=== PATIENT | male | born 1970 | race Caucasian/White ===

== ENCOUNTER → 2016-12-26 | Outpatient (CLI) | payer MEDICARE, MEDICAID ==
[~2016-12-26] MED LIST: ACET-784 PR; AUD NEB; BENZ56.73 TP; CLIN1KIT TP; IPRNEB IH; SUCR1ORA3 PO
== END | disposition home or self-care (01) ==
LOC: RADPV 09:43
PROVIDERS: ATTEND Family Medicine
DX: Z13.820 Encounter for screening for osteoporosis (principal); M81.0 Age-related osteoporosis without current pathological fracture
CPT/HCPCS: 77080

== ENCOUNTER 2017-06-12 10:16 | Inpatient (IN) | payer MEDICARE, MEDICAID ==
[~2017-06-12] VITALS: Ht 165.1 cm; Wt 46.6 kg
[2017-06-12] MEDS ORDERED: FAMO20 PO (10:25)
[2017-06-12] MEDS ORDERED: GLYC1TAB11 PO (10:25)
[2017-06-12] MEDS ORDERED: ALEN70TA48 PO (10:25)
[2017-06-12] MEDS ORDERED: OS500 PO (10:25)
[2017-06-12] MEDS ORDERED: 0.9% SODIUM CHLORIDE 10 ML SYRINGE IVP PRN (10:45)
[2017-06-12 11:43] LABS: EOSINOPHILS % (AUTO) 0.2 % (1.0-6.0); HEMATOCRIT 44.2 % (41-53); HEMOGLOBIN 15.3 g/dL (13.5-17.5); LYMPHOCYTES # (AUTO) 0.7 K/uL (1.0-4.8); LYMPHOCYTES % (AUTO) 5.6 % (22.0-44.0); MEAN CORPUSCULAR HEMOGLOBIN 30.8 pg (26.0-34.0); MEAN CORPUSCULAR HGB CONC 34.5 G/dL (31.0-37.0); MEAN CORPUSCULAR VOLUME 89 fL (80-100); MONOCYTES # (AUTO) 0.7 K/uL (0.1-1.0); MONOCYTES % (AUTO) 5.7 % (2.0-9.0); NEUTROPHILS # (AUTO) 11.2 K/uL (1.8-7.7); PLATELET COUNT (AUTO) 292 K/uL (150-450); RED BLOOD CELL COUNT(AUTO) 4.96 MIL/uL (4.50-5.90); RED CELL DISTRIBUTION WIDTH 12.6 % (11.5-14.5); WHITE BLOOD COUNT (AUTO) 12.7 K/uL (4.5-11.0)
[2017-06-12 11:45] LABS: NEUTROPHILS % (AUTO) 88.5 % (40.0-70.0)
[2017-06-12 11:52] LABS: PROTHROMBIN TIME 10.6 SEC (9.4-11.6)
[2017-06-12 11:58] LABS: ANION GAP 10 mmol/L (8-16); CALCIUM, TOTAL 9.2 mg/dL (8.8-10.5); CARBON DIOXIDE 27 mmol/L (22-29); CHLORIDE 102 mmol/L (98-107); CREATININE 0.63 mg/dL (0.60-1.30); GLOMERULAR FILTR. RATE CALC > 60 mL/min (>60); POTASSIUM 3.9 mmol/L (3.5-5.1); SODIUM SERUM 139 mmol/L (136-145); UREA NITROGEN, BLOOD 25 mg/dL (7-18)
[2017-06-12 12:04] LABS: ALANINE AMINOTRANSFERASE 34 U/L (12-78); ALBUMIN 3.2 g/dL (3.4-5.0); ASPARTATE AMINOTRANSFERASE 25 U/L (15-37); BILIRUBIN,TOTAL 0.3 mg/dL (0.1-1.0); TOTAL PROTEIN, SERUM 7.2 g/dL (6.4-8.2)
[2017-06-12 12:15] LABS: APPEARANCE,URINE CLEAR (CLEAR); GLUCOSE, URINE (UA) NEGATIVE (NEGATIVE); KETONES,URINE TRACE mg/dL (NEGATIVE); LEUKOCYTE ESTERASE ,URINE NEGATIVE (NEGATIVE); OCCULT BLOOD,URINE NEGATIVE (NEGATIVE); PROTEIN,URINE POS 1+ (NEGATIVE)
[2017-06-12 12:22] LABS: ADD UA MICROSCOPIC NO
[2017-06-12 12:45] LABS: LACTIC ACID 0.9 mmol/L (0.4-2.0)
[2017-06-12] MEDS ORDERED: ACETAMINOPHEN 1000 MG/ISO-OSM 100 ML IV ONE (13:00)
[2017-06-12] MEDS ORDERED: SODIUM CHLORIDE 0.9% 1,000 ML IV ONE (13:00)
[2017-06-12] MEDS ORDERED: AZITHROMYCIN 500 MG/NS 250 ML IV ONE (13:00)
[2017-06-12] MEDS ORDERED: CefTRIAXone 1 GM/DEXTROSE 50 ML IV ONE (13:00)
[2017-06-12 15:30] VITALS: BP 129/70
[2017-06-12] MEDS ORDERED: INSULIN REGULAR, HUMAN 100 UNITS/ML SQ PRN (19:30)
[2017-06-12] MEDS ORDERED: DEXTROSE 50%-WATER 25 GM/50 ML SYRINGE IVP PRN (19:30)
[2017-06-12 20:57] VITALS: BP 116/56
[2017-06-13 00:10] VITALS: BP 124/73
[2017-06-13 06:10] VITALS: BP 122/74
[2017-06-13 08:16] VITALS: BP 130/64
[2017-06-13 11:56] VITALS: BP_SYST 125
[2017-06-13] MEDS: AZITHROMYCIN 250 MG in SODIUM CHLORIDE 0.9% 150 ML IV SCH (13:55)
[2017-06-13] MEDS ORDERED: SODIUM CHLORIDE 0.9% 250 ML IV ONE (13:56)
[2017-06-13] MEDS: CefTRIAXone 1 GM/DEXTROSE 50 ML IV SCH (13:58)
[2017-06-13] MEDS: ACETYLCYSTEINE 10% 100 MG/ML 4 ML NEB SOLUTION NEB SCH ×2 (15:59→19:29)
[2017-06-13] MEDS: ALBUTEROL SULFATE 2.5 MG/0.5 ML NEB SOLUTION NEB SCH ×3 (15:59→23:02)
[2017-06-13] MEDS: IPRATROPIUM BROMIDE 0.5 MG/2.5 ML NEB SOLUTION NEB SCH ×3 (15:59→23:02)
[2017-06-13 16:49] VITALS: BP 131/88
[2017-06-13 19:08] LABS: GLUCOSE,POINT OF CARE 128 MG/DL (70-110)
[2017-06-13 19:08] LABS: GLUCOSE,POINT OF CARE 128 MG/DL (70-110)
[2017-06-13 19:08] LABS: GLUCOSE,POINT OF CARE 102 MG/DL (70-110)
[2017-06-13 20:00] VITALS: BP 121/75
[2017-06-14] VITALS (7 sets, daily range): BP systolic 109–138; BP diastolic 66–86
[2017-06-14] MEDS: IPRATROPIUM BROMIDE 0.5 MG/2.5 ML NEB SOLUTION NEB SCH ×6 (03:12→23:04)
[2017-06-14] MEDS: ALBUTEROL SULFATE 2.5 MG/0.5 ML NEB SOLUTION NEB SCH ×6 (03:12→23:04)
[2017-06-14] MEDS ORDERED: ONDANSETRON HCL 4 MG/2 ML VIAL IVP PRN (09:00)
[2017-06-14] MEDS ORDERED: IPRATROPIUM BROMIDE 0.5 MG/2.5 ML NEB SOLUTION NEB PRN (09:00)
[2017-06-14] MEDS ORDERED: ACETAMINOPHEN 325 MG TABLET PO PRN (09:00)
[2017-06-14] MEDS ORDERED: ZOLPIDEM TARTRATE 5 MG TABLET PO PRN (09:00)
[2017-06-14] MEDS ORDERED: ALBUTEROL SULFATE 2.5 MG/0.5 ML NEB SOLUTION NEB PRN (09:00)
[2017-06-14] MEDS: DOCUSATE SODIUM 100 MG CAPSULE PO SCH ×2 (09:50→20:40)
[2017-06-14 10:58] LABS: BASOPHILS % (AUTO) 0.3 % (0.0-2.0); EOSINOPHILS % (AUTO) 2.4 % (1.0-6.0); HEMATOCRIT 44.3 % (41-53); HEMOGLOBIN 15.3 g/dL (13.5-17.5); LYMPHOCYTES # (AUTO) 1.6 K/uL (1.0-4.8); LYMPHOCYTES % (AUTO) 18.4 % (22.0-44.0); MEAN CORPUSCULAR HEMOGLOBIN 30.8 pg (26.0-34.0); MEAN CORPUSCULAR HGB CONC 34.5 G/dL (31.0-37.0); MEAN CORPUSCULAR VOLUME 89 fL (80-100); MONOCYTES # (AUTO) 0.5 K/uL (0.1-1.0); MONOCYTES % (AUTO) 5.6 % (2.0-9.0); NEUTROPHILS # (AUTO) 6.5 K/uL (1.8-7.7); NEUTROPHILS % (AUTO) 73.3 % (40.0-70.0); PLATELET COUNT (AUTO) 320 K/uL (150-450); RED BLOOD CELL COUNT(AUTO) 4.98 MIL/uL (4.50-5.90); RED CELL DISTRIBUTION WIDTH 13.1 % (11.5-14.5); WHITE BLOOD COUNT (AUTO) 8.9 K/uL (4.5-11.0)
[2017-06-14 11:08] LABS: ANION GAP 9 mmol/L (8-16); CALCIUM, TOTAL 10.2 mg/dL (8.8-10.5); CARBON DIOXIDE 29 mmol/L (22-29); CHLORIDE 103 mmol/L (98-107); CREATININE 0.52 mg/dL (0.60-1.30); GLOMERULAR FILTR. RATE CALC > 60 mL/min (>60); POTASSIUM 4.9 mmol/L (3.5-5.1); SODIUM SERUM 141 mmol/L (136-145); UREA NITROGEN, BLOOD 21 mg/dL (7-18)
[2017-06-14] MEDS: ACETYLCYSTEINE 10% 100 MG/ML 4 ML NEB SOLUTION NEB SCH ×3 (11:09→20:14)
[2017-06-14 11:13] LABS: ALANINE AMINOTRANSFERASE 26 U/L (12-78); ALBUMIN 3.2 g/dL (3.4-5.0); ASPARTATE AMINOTRANSFERASE 29 U/L (15-37); BILIRUBIN,TOTAL 0.3 mg/dL (0.1-1.0); TOTAL PROTEIN, SERUM 8.1 g/dL (6.4-8.2)
[2017-06-14] MEDS: CefTRIAXone 1 GM/DEXTROSE 50 ML IV SCH (11:39)
[2017-06-14] MEDS: AZITHROMYCIN 250 MG in SODIUM CHLORIDE 0.9% 150 ML IV SCH (13:40)
[2017-06-14] MEDS: HEPARIN SODIUM,PORCINE 5,000 UNITS/ML VIAL SQ SCH (16:12)
[2017-06-14 20:02] LABS: GLUCOSE,POINT OF CARE 118 MG/DL (70-110)
[2017-06-14 20:07] LABS: GLUCOSE,POINT OF CARE 146 MG/DL (70-110)
[2017-06-14 20:08] LABS: GLUCOSE,POINT OF CARE 118 MG/DL (70-110)
[2017-06-15] MEDS: HEPARIN SODIUM,PORCINE 5,000 UNITS/ML VIAL SQ SCH ×3 (01:39→16:01)
[2017-06-15 02:02] LABS: GLUCOSE,POINT OF CARE 151 MG/DL (70-110)
[2017-06-15] MEDS: IPRATROPIUM BROMIDE 0.5 MG/2.5 ML NEB SOLUTION NEB SCH ×4 (02:55→15:00)
[2017-06-15] MEDS: ALBUTEROL SULFATE 2.5 MG/0.5 ML NEB SOLUTION NEB SCH ×4 (02:55→15:34)
[2017-06-15 04:00] VITALS: BP 139/83
[2017-06-15 06:40] LABS: BASOPHILS % (AUTO) 0.5 % (0.0-2.0); EOSINOPHILS % (AUTO) 3.1 % (1.0-6.0); HEMATOCRIT 45.9 % (41-53); HEMOGLOBIN 15.7 g/dL (13.5-17.5); LYMPHOCYTES # (AUTO) 1.3 K/uL (1.0-4.8); LYMPHOCYTES % (AUTO) 11.8 % (22.0-44.0); MEAN CORPUSCULAR HEMOGLOBIN 30.5 pg (26.0-34.0); MEAN CORPUSCULAR HGB CONC 34.1 G/dL (31.0-37.0); MEAN CORPUSCULAR VOLUME 89 fL (80-100); MONOCYTES # (AUTO) 0.7 K/uL (0.1-1.0); NEUTROPHILS % (AUTO) 78.6 % (40.0-70.0); PLATELET COUNT (AUTO) 409 K/uL (150-450); RED BLOOD CELL COUNT(AUTO) 5.13 MIL/uL (4.50-5.90); WHITE BLOOD COUNT (AUTO) 11.5 K/uL (4.5-11.0)
[2017-06-15 06:57] LABS: ALANINE AMINOTRANSFERASE 30 U/L (12-78); ALBUMIN 3.3 g/dL (3.4-5.0); ANION GAP 11 mmol/L (8-16); ASPARTATE AMINOTRANSFERASE 21 U/L (15-37); BILIRUBIN,TOTAL 0.2 mg/dL (0.1-1.0); CALCIUM, TOTAL 10.1 mg/dL (8.8-10.5); CARBON DIOXIDE 27 mmol/L (22-29); CHLORIDE 102 mmol/L (98-107); CREATININE 0.59 mg/dL (0.60-1.30); GLOMERULAR FILTR. RATE CALC > 60 mL/min (>60); POTASSIUM 4.2 mmol/L (3.5-5.1); SODIUM SERUM 140 mmol/L (136-145); TOTAL PROTEIN, SERUM 7.6 g/dL (6.4-8.2); UREA NITROGEN, BLOOD 22 mg/dL (7-18)
[2017-06-15] MEDS: ACETYLCYSTEINE 10% 100 MG/ML 4 ML NEB SOLUTION NEB SCH ×2 (08:07→15:34)
[2017-06-15] MEDS: DOCUSATE SODIUM 100 MG CAPSULE PO SCH (08:36)
[2017-06-15 11:34] VITALS: BP 129/50
[2017-06-15] MEDS: CefTRIAXone 1 GM/DEXTROSE 50 ML IV SCH (12:21)
[2017-06-15] MEDS ORDERED: AZIT250T9 GT (12:27)
[2017-06-15] MEDS ORDERED: ACET104 NEB (12:28)
[2017-06-15] MEDS ORDERED: CEFX1I IM (12:30)
[2017-06-15] MEDS ORDERED: CEFX1I IV (12:32)
[2017-06-15] MEDS ORDERED: INSREG SQ (12:35)
[2017-06-15] MEDS: AZITHROMYCIN 250 MG in SODIUM CHLORIDE 0.9% 150 ML IV SCH (13:02)
[2017-06-15 15:57] VITALS: BP 125/73
[2017-06-16 16:07] LABS: GLUCOSE,POINT OF CARE 149 MG/DL (70-110)
== END 2017-06-15 17:15 | DRG 871 ==
LOC: EMS 10:18 → 5N 13:53
PROVIDERS: ADMIT Hospitalist; ATTEND Hospitalist
DX: A41.9 Sepsis, unspecified organism (principal); J18.9 Pneumonia, unspecified organism; F73 Profound intellectual disabilities; J98.11 Atelectasis; R13.10 Dysphagia, unspecified; E11.9 Type 2 diabetes mellitus without complications; G80.9 Cerebral palsy, unspecified; Z93.1 Gastrostomy status; Z87.01 Personal history of pneumonia (recurrent); Z88.1 Allergy status to other antibiotic agents; Z88.8 Allergy status to other drugs, medicaments and biological substances
CPT/HCPCS: 51702; 71250; 82962; 83605; 84145; 87040; 87081; 93005; 94640; 94668; 96365; 96367; 99285; J0131; J0456; J0696; J1644; J7030; J7050

== ENCOUNTER 2021-07-19 09:40 | Inpatient (IN) | payer MEDICARE, MEDICAID ==
[~2021-07-19] VITALS: Ht 160 cm; Wt 39.0 kg
[~2021-07-19 09:40] MED LIST changes: -ACET-784 PR; +ACET104 NEB; -AUD NEB; -BENZ56.73 TP; +BISA10SU11 PR; -CLIN1KIT TP; +INSREG SQ; -IPRNEB IH; -SUCR1ORA3 PO
[2021-07-19] MEDS ORDERED: 0.9% SODIUM CHLORIDE 10 ML SYRINGE IVP PRN (10:00)
[2021-07-19 10:17] LABS: BASOPHILS % (AUTO) 0.3 % (0.0-2.0); EOSINOPHILS % (AUTO) 0.1 % (1.0-6.0); HEMATOCRIT 47.9 % (41-53); HEMOGLOBIN 16.2 g/dL (13.5-17.5); LYMPHOCYTES # (AUTO) 1.8 K/uL (1.0-4.8); LYMPHOCYTES % (AUTO) 9.6 % (22.0-44.0); MEAN CORPUSCULAR HEMOGLOBIN 30.1 pg (26.0-34.0); MEAN CORPUSCULAR HGB CONC 33.7 G/dL (31.0-37.0); MEAN CORPUSCULAR VOLUME 89 fL (80-100); MONOCYTES # (AUTO) 1.8 K/uL (0.1-1.0); MONOCYTES % (AUTO) 9.3 % (2.0-9.0); NEUTROPHILS # (AUTO) 15.4 K/uL (1.8-7.7); NEUTROPHILS % (AUTO) 80.7 % (40.0-70.0); PLATELET COUNT (AUTO) 507 K/uL (150-450); RED BLOOD CELL COUNT(AUTO) 5.37 MIL/uL (4.50-5.90); RED CELL DISTRIBUTION WIDTH 13.2 % (11.5-14.5)
[2021-07-19 10:29] LABS: ANION GAP 12 mmol/L (8-16); CALCIUM, TOTAL 10.6 mg/dL (8.8-10.5); CARBON DIOXIDE 31 mmol/L (22-29); CHLORIDE 109 mmol/L (98-107); CREATININE 1.08 mg/dL (0.60-1.30); GLOMERULAR FILTR. RATE CALC > 60 mL/min (>60); GLUCOSE,RANDOM 180 mg/dL (70-110); INR 1.2 (0.9-1.1); POTASSIUM 4.7 mmol/L (3.5-5.1); PROTHROMBIN TIME 12.9 SEC (9.4-11.6); SODIUM SERUM 152 mmol/L (136-145); UREA NITROGEN, BLOOD 36 mg/dL (7-18)
[2021-07-19] MEDS ORDERED: ALBUTEROL SULFATE 5 MG/ML 20 ML NEB SOLN [BULK] NEB ONE (10:30)
[2021-07-19] MEDS ORDERED: ACETYLCYSTEINE 20% 200 MG/ML 4 ML NEB SOLUTION NEB ONE (10:30)
[2021-07-19 10:35] LABS: ALANINE AMINOTRANSFERASE 38 U/L (12-78); ALBUMIN 3.1 g/dL (3.4-5.0); ALKALINE PHOSPHATASE 81 U/L (46-116); ASPARTATE AMINOTRANSFERASE 31 U/L (15-37); BILIRUBIN,TOTAL 0.4 mg/dL (0.1-1.0); TOTAL PROTEIN, SERUM 10.5 g/dL (6.4-8.2)
[2021-07-19 10:41] LABS: LACTIC ACID 2.5 mmol/L (0.4-2.0)
[2021-07-19 10:59] LABS: B-TYPE NATRIURETIC PEPTIDE 95 pg/mL (0-100)
[2021-07-19] MEDS ORDERED: PIPERACILLIN/TAZO 3.375 GM/D5W 50 ML IV ONE (11:00)
[2021-07-19] MEDS ORDERED: SODIUM CHLORIDE 0.9% 1,250 ML IV ONE (11:00)
[2021-07-19] MEDS ORDERED: 0.9% SODIUM CHLORIDE 5 ML NEB SOLUTION NEB ONE ×2 (11:10→11:29)
[2021-07-19] MEDS ORDERED: RAPID SEQUENCE KIT [RSI] 1 EACH KIT MISC ONE (12:03)
[2021-07-19] MEDS ORDERED: PROPOFOL 1000 MG/ISO-OSM 100 ML ONE (12:04)
[2021-07-19 12:21] LABS: ABG A-A DIFF O2 630.1 mmHg (10-20.0); ABG BASE EXCESS -0.2 mmol/L (-2.0-3.0); ABG CARBOXYHEMOGLOBIN 1.5 % (0.0-1.5); ABG HCO3 24.8 mmol/L (22.0-26.0); ABG METHEMOGLOBIN 0.3 % (0.0-1.5); ABG OXYGEN SATURATION 86.4 % (95.0-98.0); ABG OXYHEMOGLOBIN 84.8 % (94.0-100.0); ABG PCO2 32 mmHg (35-45); ABG PH 7.479 (7.35-7.450); O2 DEVICE,BLOOD GAS BIPAP (ROOM AIR); PO2, ARTERIAL BG 50.8 mmHg (84.0-92.0); SITE, BLOOD GAS LFT BRACHIAL; SOURCE, BLOOD GAS ARTERIAL; TEMPERATURE, FAHRENHEIT, BG 98.6 FAHREN (96.0-98.6)
[2021-07-19 12:22] LABS: INSPIRATORY TIME, BG 1.1 SEC; SPONTANEOUS VT, BG 450 ml
[2021-07-19] MEDS ORDERED: SUCCINYLCHOLINE CHLORIDE 20 MG/ML 10 ML VIAL IVP ONE (12:30)
[2021-07-19] MEDS ORDERED: ETOMIDATE 2 MG/ML 10 ML VIAL IVP ONE (12:30)
[2021-07-19 12:32] LABS: COVID AG,FIA SOURCE NASOPHARYNGEAL
[2021-07-19] MEDS ORDERED: ACETAMINOPHEN 1000 MG/ISO-OSM 100 ML IV ONE (14:30)
[2021-07-19] MEDS ORDERED: ONDANSETRON HCL 4 MG/2 ML VIAL IVP PRN (15:00)
[2021-07-19] MEDS ORDERED: INSULIN LISPRO 100 UNITS/ML SQ PRN (15:00)
[2021-07-19] MEDS ORDERED: SODIUM BICARBONATE 100 MEQ in DEXTROSE 5%-WATER 1,000 ML IV ONE (15:00)
[2021-07-19] MEDS ORDERED: MAGNESIUM HYDROXIDE SUSPENSION 30 ML UDCUP PO PRN (15:00)
[2021-07-19] MEDS ORDERED: ACETAMINOPHEN 325 MG TABLET PO PRN (15:00)
[2021-07-19] MEDS ORDERED: DEXTROSE 50%-WATER 25 GM/50 ML SYRINGE IVP PRN (15:00)
[2021-07-19] MEDS ORDERED: MORPHINE SULFATE 2 MG/ML SYRINGE IVP PRN (15:00)
[2021-07-19] MEDS ORDERED: BISACODYL 10 MG RECTAL RECTAL SUPPOSITORY PR PRN (15:00)
[2021-07-19] MEDS ORDERED: ZOLPIDEM TARTRATE 5 MG TABLET PO PRN (15:00)
[2021-07-19 15:03] LABS: ABG BASE EXCESS -0.3 mmol/L (-2.0-3.0); ABG CARBOXYHEMOGLOBIN 0.1 % (0.0-1.5); ABG HCO3 23.8 mmol/L (22.0-26.0); ABG METHEMOGLOBIN 0.4 % (0.0-1.5); ABG OXYGEN CONTENT 20.2 mL/dL (15.0-23.0); ABG OXYGEN SATURATION 98.6 % (95.0-98.0); ABG OXYHEMOGLOBIN 98.1 % (94.0-100.0); ABG PCO2 52 mmHg (35-45); ABG PH 7.316 (7.35-7.450); ABG TOTAL HEMOGLOBIN 14.5 G/dL (12.0-18.0); O2 DEVICE,BLOOD GAS VENTILATOR (ROOM AIR); PEEP,BG 5 cm H2O; PO2, ARTERIAL BG 157.2 mmHg (84.0-92.0); SITE, BLOOD GAS LFT BRACHIAL; SOURCE, BLOOD GAS ARTERIAL; TEMPERATURE, FAHRENHEIT, BG 102.1 FAHREN (96.0-98.6); VENT MODE, BG 375 (ROOM AIR)
[2021-07-19] MEDS ORDERED: NOREPINEPHRINE 4 MG/D5%-WATER 250 ML IV ONE (15:16)
[2021-07-19] MEDS: BENZONATATE 100 MG CAPSULE PO SCH ×2 (16:00→23:00)
[2021-07-19] MEDS: ACETYLCYSTEINE 10% 100 MG/ML 4 ML NEB SOLUTION NEB SCH ×2 (16:00→20:44)
[2021-07-19 16:05] LABS: APPEARANCE,URINE CLEAR (CLEAR); BILIRUBIN,URINE NEGATIVE (NEGATIVE); GLUCOSE, URINE (UA) NEGATIVE (NEGATIVE); KETONES,URINE NEGATIVE (NEGATIVE); LEUKOCYTE ESTERASE ,URINE SMALL (NEGATIVE); NITRATE,URINE NEGATIVE (NEGATIVE); OCCULT BLOOD,URINE LARGE (NEGATIVE); PROTEIN,URINE SEE CONFIRM (NEGATIVE); UROBILINOGEN,URINE 0.2 mg/dL (<=1.0)
[2021-07-19] MEDS: NOREPINEPHRINE 4 MG/D5%-WATER 250 ML IV PRN ×2 (16:07→21:30)
[2021-07-19 16:13] LABS: BACTERIA,URINE Few /HPF (None Seen); SULFOSALICYLIC ACID,URINE 2+ (Negative)
[2021-07-19] MEDS: HEPARIN SODIUM,PORCINE 5,000 UNITS/ML VIAL SQ SCH (16:29)
[2021-07-19] MEDS: ALBUTEROL SULFATE 2.5 MG/0.5 ML NEB SOLUTION NEB PRN (20:44)
[2021-07-19] MEDS: IPRATROPIUM BROMIDE 0.5 MG/2.5 ML NEB SOLUTION NEB PRN (20:44)
[2021-07-19] MEDS: PIPERACILLIN/TAZO 3.375 GM/D5W 50 ML IV SCH (21:36)
[2021-07-19] MEDS ORDERED: SODIUM CHLORIDE 0.9% 250 ML IV ONE (22:18)
[2021-07-19] MEDS: PROPOFOL 1000 MG/ISO-OSM 100 ML IV PRN (22:26)
[2021-07-19] MEDS: DOCUSATE SODIUM 100 MG CAPSULE PO SCH (23:00)
[2021-07-19] MEDS: GuaiFENesin SR 600 MG ER TABLET PO SCH (23:00)
[2021-07-20] VITALS: BP 113/90
[2021-07-20] MEDS: PIPERACILLIN/TAZO 3.375 GM/D5W 50 ML IV SCH ×4 (00:56→17:04)
[2021-07-20] MEDS: HEPARIN SODIUM,PORCINE 5,000 UNITS/ML VIAL SQ SCH ×3 (00:56→17:03)
[2021-07-20] MEDS: NOREPINEPHRINE 4 MG/D5%-WATER 250 ML IV PRN ×3 (00:57→08:29)
[2021-07-20 04:00] VITALS: BP 102/75
[2021-07-20] MEDS: PROPOFOL 1000 MG/ISO-OSM 100 ML IV PRN ×3 (04:43→20:24)
[2021-07-20 05:49] LABS: BASOPHILS % (AUTO) 0.4 % (0.0-2.0); EOSINOPHILS % (AUTO) 0.9 % (1.0-6.0); HEMATOCRIT 38.4 % (41-53); HEMOGLOBIN 12.9 g/dL (13.5-17.5); LYMPHOCYTES # (AUTO) 0.7 K/uL (1.0-4.8); LYMPHOCYTES % (AUTO) 4.7 % (22.0-44.0); MEAN CORPUSCULAR HGB CONC 33.5 G/dL (31.0-37.0); MEAN CORPUSCULAR VOLUME 90 fL (80-100); MONOCYTES # (AUTO) 0.9 K/uL (0.1-1.0); MONOCYTES % (AUTO) 6.3 % (2.0-9.0); PLATELET COUNT (AUTO) 373 K/uL (150-450); RED BLOOD CELL COUNT(AUTO) 4.29 MIL/uL (4.50-5.90); RED CELL DISTRIBUTION WIDTH 12.9 % (11.5-14.5)
[2021-07-20 05:52] LABS: NEUTROPHILS % (AUTO) 87.7 % (40.0-70.0)
[2021-07-20 06:01] LABS: ANION GAP 4 mmol/L (8-16); CALCIUM, TOTAL 8.7 mg/dL (8.8-10.5); CARBON DIOXIDE 31 mmol/L (22-29); CHLORIDE 110 mmol/L (98-107); CREATININE 0.87 mg/dL (0.60-1.30); GLOMERULAR FILTR. RATE CALC > 60 mL/min (>60); GLUCOSE,RANDOM 169 mg/dL (70-110); POTASSIUM 3.6 mmol/L (3.5-5.1); SODIUM SERUM 145 mmol/L (136-145); UREA NITROGEN, BLOOD 32 mg/dL (7-18)
[2021-07-20 08:00] VITALS: BP 134/97
[2021-07-20] MEDS: DOCUSATE SODIUM 100 MG CAPSULE PO SCH ×2 (08:29→20:22)
[2021-07-20] MEDS: GuaiFENesin SR 600 MG ER TABLET PO SCH ×2 (08:30→20:23)
[2021-07-20] MEDS: BENZONATATE 100 MG CAPSULE PO SCH ×3 (08:30→20:23)
[2021-07-20] MEDS: IPRATROPIUM BROMIDE 0.5 MG/2.5 ML NEB SOLUTION NEB PRN ×3 (08:59→20:59)
[2021-07-20] MEDS: ACETYLCYSTEINE 10% 100 MG/ML 4 ML NEB SOLUTION NEB SCH ×3 (08:59→21:11)
[2021-07-20] MEDS: ALBUTEROL SULFATE 2.5 MG/0.5 ML NEB SOLUTION NEB PRN ×3 (08:59→20:59)
[2021-07-20] MEDS: ETHYL ALCOHOL 62% ANTISEPTIC NASAL INHALANT 0.6 ML AMPUL NASAL SCH ×2 (09:11→20:23)
[2021-07-20 12:00] VITALS: BP 121/89
[2021-07-20 14:17] LABS: ABG CARBOXYHEMOGLOBIN 0.1 % (0.0-1.5); ABG HCO3 27.3 mmol/L (22.0-26.0); ABG METHEMOGLOBIN 0.3 % (0.0-1.5); ABG OXYGEN CONTENT 17.6 mL/dL (15.0-23.0); ABG OXYHEMOGLOBIN 96.6 % (94.0-100.0); ABG PCO2 35 mmHg (35-45); ABG PH 7.495 (7.35-7.450); ABG TOTAL HEMOGLOBIN 12.9 G/dL (12.0-18.0); PO2, ARTERIAL BG 87.7 mmHg (84.0-92.0); SOURCE, BLOOD GAS ARTERIAL; TEMPERATURE, FAHRENHEIT, BG 98.6 FAHREN (96.0-98.6)
[2021-07-20 14:18] LABS: ABG A-A DIFF O2 157.5 mmHg (10-20.0); O2 DEVICE,BLOOD GAS VENTILATOR (ROOM AIR); SITE, BLOOD GAS RT BRACHIAL
[2021-07-20 14:19] LABS: PEEP,BG 5 cm H2O; VT, ABG 375 ml
[2021-07-20 16:00] VITALS: BP 104/73
[2021-07-20] MEDS: ASPIRIN 81 MG CHEWABLE TABLET PO SCH (17:02)
[2021-07-20 17:41] LABS: GLUCOSE,POINT OF CARE 179 MG/DL (70-110)
[2021-07-20 20:00] VITALS: BP 96/76
[2021-07-20 22:36] LABS: GLUCOSE,POINT OF CARE 107 MG/DL (70-110)
[2021-07-21] VITALS: BP_SYST 104; BP_DIAS 76; BP_DIAS 78
[2021-07-21] MEDS: PIPERACILLIN/TAZO 3.375 GM/D5W 50 ML IV SCH ×4 (00:36→18:48)
[2021-07-21] MEDS: HEPARIN SODIUM,PORCINE 5,000 UNITS/ML VIAL SQ SCH ×3 (00:36→16:13)
[2021-07-21 04:00] VITALS: BP 98/79
[2021-07-21] MEDS: PROPOFOL 1000 MG/ISO-OSM 100 ML IV PRN (05:13)
[2021-07-21 05:38] LABS: BASOPHILS % (AUTO) 0.4 % (0.0-2.0); EOSINOPHILS % (AUTO) 4.2 % (1.0-6.0); HEMATOCRIT 40.9 % (41-53); HEMOGLOBIN 13.6 g/dL (13.5-17.5); LYMPHOCYTES # (AUTO) 0.6 K/uL (1.0-4.8); LYMPHOCYTES % (AUTO) 5.6 % (22.0-44.0); MEAN CORPUSCULAR HGB CONC 33.2 G/dL (31.0-37.0); MEAN CORPUSCULAR VOLUME 90 fL (80-100); MONOCYTES # (AUTO) 0.5 K/uL (0.1-1.0); MONOCYTES % (AUTO) 4.8 % (2.0-9.0); PLATELET COUNT (AUTO) 254 K/uL (150-450); RED BLOOD CELL COUNT(AUTO) 4.54 MIL/uL (4.50-5.90); RED CELL DISTRIBUTION WIDTH 13.3 % (11.5-14.5)
[2021-07-21 05:57] LABS: ANION GAP 7 mmol/L (8-16); CALCIUM, TOTAL 8.5 mg/dL (8.8-10.5); CARBON DIOXIDE 33 mmol/L (22-29); CHLORIDE 102 mmol/L (98-107); GLOMERULAR FILTR. RATE CALC > 60 mL/min (>60); GLUCOSE,RANDOM 120 mg/dL (70-110); POTASSIUM 3.2 mmol/L (3.5-5.1); SODIUM SERUM 142 mmol/L (136-145); UREA NITROGEN, BLOOD 27 mg/dL (7-18)
[2021-07-21 07:41] LABS: GLUCOSE,POINT OF CARE 111 MG/DL (70-110)
[2021-07-21 07:41] LABS: GLUCOSE,POINT OF CARE 111 MG/DL (70-110)
[2021-07-21] MEDS: IPRATROPIUM BROMIDE 0.5 MG/2.5 ML NEB SOLUTION NEB PRN ×3 (07:44→21:03)
[2021-07-21] MEDS: ALBUTEROL SULFATE 2.5 MG/0.5 ML NEB SOLUTION NEB PRN ×3 (07:44→21:03)
[2021-07-21 08:00] VITALS: BP 108/43
[2021-07-21] MEDS: ACETYLCYSTEINE 10% 100 MG/ML 4 ML NEB SOLUTION NEB SCH ×3 (08:02→21:03)
[2021-07-21] MEDS: ETHYL ALCOHOL 62% ANTISEPTIC NASAL INHALANT 0.6 ML AMPUL NASAL SCH ×2 (09:16→21:15)
[2021-07-21] MEDS: BENZONATATE 100 MG CAPSULE PO SCH ×3 (09:17→21:15)
[2021-07-21] MEDS: ASPIRIN 81 MG CHEWABLE TABLET PO SCH (09:17)
[2021-07-21] MEDS: DOCUSATE SODIUM 100 MG CAPSULE PO SCH ×2 (09:17→21:15)
[2021-07-21] MEDS: GuaiFENesin SR 600 MG ER TABLET PO SCH ×2 (09:18→21:15)
[2021-07-21 12:00] VITALS: BP 111/63
[2021-07-21 14:01] LABS: GLUCOSE,POINT OF CARE 86 MG/DL (70-110)
[2021-07-21 16:00] VITALS: BP 137/71
[2021-07-21] MEDS ORDERED: SODIUM CHLORIDE 0.9% 250 ML IV ONE (16:18)
[2021-07-21 20:00] VITALS: BP 127/74
[2021-07-22] VITALS: BP_SYST 151; BP_DIAS 75; BP_DIAS 84
[2021-07-22] MEDS: HEPARIN SODIUM,PORCINE 5,000 UNITS/ML VIAL SQ SCH ×3 (00:14→15:50)
[2021-07-22] MEDS: PIPERACILLIN/TAZO 3.375 GM/D5W 50 ML IV SCH ×4 (00:14→17:57)
[2021-07-22 00:47] LABS: GLUCOSE,POINT OF CARE 71 MG/DL (70-110)
[2021-07-22] MEDS: PROPOFOL 1000 MG/ISO-OSM 100 ML IV PRN ×4 (00:48→20:00)
[2021-07-22 04:00] VITALS: BP 148/58
[2021-07-22 06:13] LABS: CALCIUM, TOTAL 7.8 mg/dL (8.8-10.5); CARBON DIOXIDE 30 mmol/L (22-29); CHLORIDE 98 mmol/L (98-107); GLOMERULAR FILTR. RATE CALC > 60 mL/min (>60); GLUCOSE,RANDOM 101 mg/dL (70-110); UREA NITROGEN, BLOOD 24 mg/dL (7-18)
[2021-07-22 06:18] LABS: ANION GAP 15 mmol/L (8-16); POTASSIUM 3.1 mmol/L (3.5-5.1); SODIUM SERUM 143 mmol/L (136-145)
[2021-07-22 07:11] LABS: GLUCOSE,POINT OF CARE 85 MG/DL (70-110)
[2021-07-22] MEDS ORDERED: 0.9% SODIUM CHLORIDE 5 ML NEB SOLUTION NEB ONE ×2 (07:42→16:14)
[2021-07-22 08:00] VITALS: BP 108/64
[2021-07-22] MEDS: ALBUTEROL SULFATE 2.5 MG/0.5 ML NEB SOLUTION NEB PRN ×3 (08:07→20:05)
[2021-07-22] MEDS: ACETYLCYSTEINE 10% 100 MG/ML 4 ML NEB SOLUTION NEB SCH ×3 (08:07→20:05)
[2021-07-22] MEDS: ETHYL ALCOHOL 62% ANTISEPTIC NASAL INHALANT 0.6 ML AMPUL NASAL SCH ×3 (09:00→21:55)
[2021-07-22 09:34] LABS: BASOPHILS % (AUTO) 0.4 % (0.0-2.0); EOSINOPHILS % (AUTO) 6.2 % (1.0-6.0); HEMATOCRIT 36.3 % (41-53); HEMOGLOBIN 12.2 g/dL (13.5-17.5); LYMPHOCYTES # (AUTO) 0.5 K/uL (1.0-4.8); MEAN CORPUSCULAR HEMOGLOBIN 29.8 pg (26.0-34.0); MEAN CORPUSCULAR HGB CONC 33.6 G/dL (31.0-37.0); MEAN CORPUSCULAR VOLUME 89 fL (80-100); MONOCYTES # (AUTO) 0.5 K/uL (0.1-1.0); MONOCYTES % (AUTO) 6.6 % (2.0-9.0); NEUTROPHILS # (AUTO) 5.6 K/uL (1.8-7.7); NEUTROPHILS % (AUTO) 79.8 % (40.0-70.0); PLATELET COUNT (AUTO) 281 K/uL (150-450); RED BLOOD CELL COUNT(AUTO) 4.09 MIL/uL (4.50-5.90); RED CELL DISTRIBUTION WIDTH 12.8 % (11.5-14.5)
[2021-07-22] MEDS: BENZONATATE 100 MG CAPSULE PO SCH ×3 (09:47→21:55)
[2021-07-22] MEDS: ASPIRIN 81 MG CHEWABLE TABLET PO SCH (09:47)
[2021-07-22] MEDS: DOCUSATE SODIUM 100 MG CAPSULE PO SCH ×2 (09:47→21:55)
[2021-07-22] MEDS: GuaiFENesin SR 600 MG ER TABLET PO SCH ×2 (09:47→21:55)
[2021-07-22 12:00] VITALS: BP 102/71
[2021-07-22 12:11] LABS: GLUCOSE,POINT OF CARE 64 MG/DL (70-110)
[2021-07-22 13:21] LABS: GLUCOSE,POINT OF CARE 130 MG/DL (70-110)
[2021-07-22] MEDS: POTASSIUM CHLORIDE 20 MEQ ER TABLET PO PRN (14:46)
[2021-07-22 16:00] VITALS: BP 87/64
[2021-07-22 18:06] LABS: GLUCOSE,POINT OF CARE 55 MG/DL (70-110)
[2021-07-22 19:08] LABS: ANION GAP 10 mmol/L (8-16); CALCIUM, TOTAL 8.2 mg/dL (8.8-10.5); CARBON DIOXIDE 30 mmol/L (22-29); CHLORIDE 102 mmol/L (98-107); CREATININE 0.62 mg/dL (0.60-1.30); GLOMERULAR FILTR. RATE CALC > 60 mL/min (>60); GLUCOSE,RANDOM 160 mg/dL (70-110); SODIUM SERUM 142 mmol/L (136-145); UREA NITROGEN, BLOOD 22 mg/dL (7-18)
[2021-07-22 19:11] LABS: POTASSIUM 2.5 mmol/L (3.5-5.1)
[2021-07-22] MEDS: DEXTROSE 5%-LACTATED RINGERS 1,000 ML IV SCH (19:30)
[2021-07-22 20:00] VITALS: BP_SYST 105; BP_SYST 98; BP_DIAS 61; BP_DIAS 63
[2021-07-22] MEDS: IPRATROPIUM BROMIDE 0.5 MG/2.5 ML NEB SOLUTION NEB PRN (20:05)
[2021-07-23] VITALS: BP_SYST 100; BP_SYST 96; BP_DIAS 61; BP_DIAS 69
[2021-07-23] MEDS: PIPERACILLIN/TAZO 3.375 GM/D5W 50 ML IV SCH ×5 (00:01→22:04)
[2021-07-23] MEDS: HEPARIN SODIUM,PORCINE 5,000 UNITS/ML VIAL SQ SCH ×3 (00:01→15:31)
[2021-07-23 04:00] VITALS: BP_SYST 101; BP_SYST 112; BP_DIAS 68; BP_DIAS 71
[2021-07-23] MEDS: PROPOFOL 1000 MG/ISO-OSM 100 ML IV PRN ×2 (05:29→13:28)
[2021-07-23] MEDS: IPRATROPIUM BROMIDE 0.5 MG/2.5 ML NEB SOLUTION NEB PRN ×2 (07:42→15:00)
[2021-07-23] MEDS: ALBUTEROL SULFATE 2.5 MG/0.5 ML NEB SOLUTION NEB PRN ×3 (07:42→21:21)
[2021-07-23] MEDS: ACETYLCYSTEINE 10% 100 MG/ML 4 ML NEB SOLUTION NEB SCH ×3 (07:59→20:44)
[2021-07-23 08:00] VITALS: BP 101/58
[2021-07-23 08:47] LABS: GLUCOSE,POINT OF CARE 100 MG/DL (70-110)
[2021-07-23 08:47] LABS: GLUCOSE,POINT OF CARE 147 MG/DL (70-110)
[2021-07-23] MEDS: ASPIRIN 81 MG CHEWABLE TABLET PO SCH (09:27)
[2021-07-23] MEDS: ETHYL ALCOHOL 62% ANTISEPTIC NASAL INHALANT 0.6 ML AMPUL NASAL SCH ×2 (09:27→22:04)
[2021-07-23] MEDS: DOCUSATE SODIUM 100 MG CAPSULE PO SCH ×2 (09:27→22:04)
[2021-07-23] MEDS: GuaiFENesin SR 600 MG ER TABLET PO SCH ×2 (09:28→22:04)
[2021-07-23] MEDS: BENZONATATE 100 MG CAPSULE PO SCH ×3 (09:28→22:05)
[2021-07-23] MEDS: HYDROCODONE/ACETAMINOPHEN 5-325 MG TABLET PO PRN (09:28)
[2021-07-23 09:36] LABS: GLUCOSE,POINT OF CARE 94 MG/DL (70-110)
[2021-07-23 09:37] LABS: BASOPHILS % (AUTO) 0.2 % (0.0-2.0); EOSINOPHILS % (AUTO) 7.5 % (1.0-6.0); HEMATOCRIT 34.3 % (41-53); HEMOGLOBIN 11.7 g/dL (13.5-17.5); LYMPHOCYTES # (AUTO) 0.6 K/uL (1.0-4.8); LYMPHOCYTES % (AUTO) 10.5 % (22.0-44.0); MEAN CORPUSCULAR VOLUME 88 fL (80-100); MONOCYTES # (AUTO) 0.5 K/uL (0.1-1.0); MONOCYTES % (AUTO) 8.2 % (2.0-9.0); NEUTROPHILS # (AUTO) 4.5 K/uL (1.8-7.7); NEUTROPHILS % (AUTO) 73.6 % (40.0-70.0); PLATELET COUNT (AUTO) 304 K/uL (150-450); RED BLOOD CELL COUNT(AUTO) 3.89 MIL/uL (4.50-5.90); RED CELL DISTRIBUTION WIDTH 13.1 % (11.5-14.5)
[2021-07-23 09:44] LABS: ANION GAP 6 mmol/L (8-16); CALCIUM, TOTAL 8.4 mg/dL (8.8-10.5); CARBON DIOXIDE 33 mmol/L (22-29); CHLORIDE 104 mmol/L (98-107); CREATININE 0.65 mg/dL (0.60-1.30); GLOMERULAR FILTR. RATE CALC > 60 mL/min (>60); GLUCOSE,RANDOM 109 mg/dL (70-110); SODIUM SERUM 143 mmol/L (136-145); UREA NITROGEN, BLOOD 18 mg/dL (7-18)
[2021-07-23 09:47] LABS: POTASSIUM 2.8 mmol/L (3.5-5.1)
[2021-07-23] MEDS: POTASSIUM CHLORIDE 20 MEQ ER TABLET PO PRN ×2 (10:05→15:31)
[2021-07-23 12:00] VITALS: BP 103/66
[2021-07-23 12:31] LABS: GLUCOSE,POINT OF CARE 98 MG/DL (70-110)
[2021-07-23 14:17] LABS: ANION GAP 3 mmol/L (8-16); CALCIUM, TOTAL 8.3 mg/dL (8.8-10.5); CARBON DIOXIDE 33 mmol/L (22-29); CHLORIDE 105 mmol/L (98-107); CREATININE 0.53 mg/dL (0.60-1.30); GLOMERULAR FILTR. RATE CALC > 60 mL/min (>60); GLUCOSE,RANDOM 78 mg/dL (70-110); POTASSIUM 3.2 mmol/L (3.5-5.1); SODIUM SERUM 141 mmol/L (136-145); UREA NITROGEN, BLOOD 16 mg/dL (7-18)
[2021-07-23 14:41] LABS: GLUCOSE,POINT OF CARE 63 MG/DL (70-110)
[2021-07-23 16:00] VITALS: BP 91/60
[2021-07-23 16:06] LABS: GLUCOSE,POINT OF CARE 172 MG/DL (70-110)
[2021-07-23 17:42] LABS: GLUCOSE,POINT OF CARE 126 MG/DL (70-110)
[2021-07-23 20:00] VITALS: BP 105/69
[2021-07-23 20:58] LABS: ANION GAP 1 mmol/L (8-16); CALCIUM, TOTAL 8.5 mg/dL (8.8-10.5); CARBON DIOXIDE 35 mmol/L (22-29); CHLORIDE 107 mmol/L (98-107); CREATININE 0.61 mg/dL (0.60-1.30); GLOMERULAR FILTR. RATE CALC > 60 mL/min (>60); GLUCOSE,RANDOM 101 mg/dL (70-110); POTASSIUM 3.5 mmol/L (3.5-5.1); SODIUM SERUM 143 mmol/L (136-145); UREA NITROGEN, BLOOD 14 mg/dL (7-18)
[2021-07-23] MEDS: DEXTROSE 5%-LACTATED RINGERS 1,000 ML IV SCH (22:05)
[2021-07-24] VITALS: BP 140/86
[2021-07-24] MEDS: HEPARIN SODIUM,PORCINE 5,000 UNITS/ML VIAL SQ SCH ×4 (01:16→23:53)
[2021-07-24 01:46] LABS: GLUCOSE,POINT OF CARE 113 MG/DL (70-110)
[2021-07-24] MEDS: PROPOFOL 1000 MG/ISO-OSM 100 ML IV PRN ×3 (02:28→19:55)
[2021-07-24 04:00] VITALS: BP 148/81
[2021-07-24] MEDS: PIPERACILLIN/TAZO 3.375 GM/D5W 50 ML IV SCH ×4 (04:57→20:35)
[2021-07-24 08:00] VITALS: BP 129/77
[2021-07-24] MEDS: ACETYLCYSTEINE 10% 100 MG/ML 4 ML NEB SOLUTION NEB SCH ×3 (08:18→20:28)
[2021-07-24] MEDS: ALBUTEROL SULFATE 2.5 MG/0.5 ML NEB SOLUTION NEB PRN ×3 (08:18→20:28)
[2021-07-24] MEDS: IPRATROPIUM BROMIDE 0.5 MG/2.5 ML NEB SOLUTION NEB PRN ×2 (08:18→16:40)
[2021-07-24] MEDS: ETHYL ALCOHOL 62% ANTISEPTIC NASAL INHALANT 0.6 ML AMPUL NASAL SCH ×2 (08:26→20:35)
[2021-07-24] MEDS: DOCUSATE SODIUM 100 MG CAPSULE PO SCH ×2 (08:26→20:36)
[2021-07-24] MEDS: ASPIRIN 81 MG CHEWABLE TABLET PO SCH (08:27)
[2021-07-24] MEDS: BENZONATATE 100 MG CAPSULE PO SCH ×3 (08:27→20:36)
[2021-07-24] MEDS: GuaiFENesin SR 600 MG ER TABLET PO SCH ×2 (08:28→20:36)
[2021-07-24] MEDS: DEXTROSE 5%-LACTATED RINGERS 1,000 ML IV SCH (10:18)
[2021-07-24 12:00] VITALS: BP 108/58
[2021-07-24 12:11] LABS: GLUCOSE,POINT OF CARE 93 MG/DL (70-110)
[2021-07-24 12:38] LABS: ANION GAP 3 mmol/L (8-16); CALCIUM, TOTAL 8.5 mg/dL (8.8-10.5); CARBON DIOXIDE 32 mmol/L (22-29); CHLORIDE 109 mmol/L (98-107); CREATININE 0.57 mg/dL (0.60-1.30); GLUCOSE,RANDOM 102 mg/dL (70-110); POTASSIUM 3.9 mmol/L (3.5-5.1); SODIUM SERUM 144 mmol/L (136-145); UREA NITROGEN, BLOOD 13 mg/dL (7-18)
[2021-07-24 12:41] LABS: GLOMERULAR FILTR. RATE CALC > 60 mL/min (>60)
[2021-07-24 16:00] VITALS: BP 145/88
[2021-07-24 20:00] VITALS: BP 122/72
[2021-07-25] VITALS: BP 127/72
[2021-07-25 00:12] LABS: GLUCOSE,POINT OF CARE 121 MG/DL (70-110)
[2021-07-25 02:36] LABS: GLUCOSE,POINT OF CARE 109 MG/DL (70-110)
[2021-07-25] MEDS: DEXTROSE 5%-LACTATED RINGERS 1,000 ML IV SCH (04:09)
[2021-07-25] MEDS: PIPERACILLIN/TAZO 3.375 GM/D5W 50 ML IV SCH ×4 (04:09→22:07)
[2021-07-25 04:35] VITALS: BP 131/74
[2021-07-25] MEDS: PROPOFOL 1000 MG/ISO-OSM 100 ML IV PRN (05:57)
[2021-07-25 08:00] VITALS: BP 146/91
[2021-07-25] MEDS: ALBUTEROL SULFATE 2.5 MG/0.5 ML NEB SOLUTION NEB PRN ×3 (08:40→20:56)
[2021-07-25] MEDS: IPRATROPIUM BROMIDE 0.5 MG/2.5 ML NEB SOLUTION NEB PRN ×2 (08:40→15:33)
[2021-07-25] MEDS: ACETYLCYSTEINE 10% 100 MG/ML 4 ML NEB SOLUTION NEB SCH ×3 (08:40→20:56)
[2021-07-25] MEDS: HEPARIN SODIUM,PORCINE 5,000 UNITS/ML VIAL SQ SCH ×3 (08:45→23:52)
[2021-07-25] MEDS: BENZONATATE 100 MG CAPSULE PO SCH ×3 (08:46→20:38)
[2021-07-25] MEDS: DOCUSATE SODIUM 100 MG CAPSULE PO SCH ×2 (08:46→20:38)
[2021-07-25] MEDS: ASPIRIN 81 MG CHEWABLE TABLET PO SCH (08:46)
[2021-07-25] MEDS: GuaiFENesin SR 600 MG ER TABLET PO SCH ×2 (08:46→20:38)
[2021-07-25] MEDS: ETHYL ALCOHOL 62% ANTISEPTIC NASAL INHALANT 0.6 ML AMPUL NASAL SCH ×2 (09:03→20:37)
[2021-07-25 12:00] VITALS: BP 99/61
[2021-07-25 12:16] LABS: GLUCOSE,POINT OF CARE 96 MG/DL (70-110)
[2021-07-25 16:00] VITALS: BP 126/71
[2021-07-25 19:51] LABS: GLUCOSE,POINT OF CARE 96 MG/DL (70-110)
[2021-07-25 20:00] VITALS: BP 139/78
[2021-07-26] VITALS: BP 128/73
[2021-07-26] MEDS: PROPOFOL 1000 MG/ISO-OSM 100 ML IV PRN ×4 (00:11→22:19)
[2021-07-26 00:56] LABS: GLUCOSE,POINT OF CARE 85 MG/DL (70-110)
[2021-07-26 01:21] LABS: GLUCOSE,POINT OF CARE 106 MG/DL (70-110)
[2021-07-26] MEDS: DEXTROSE 5%-LACTATED RINGERS 1,000 ML IV SCH ×2 (02:30→22:20)
[2021-07-26 04:00] VITALS: BP 132/70
[2021-07-26] MEDS: PIPERACILLIN/TAZO 3.375 GM/D5W 50 ML IV SCH ×4 (04:05→21:08)
[2021-07-26 05:56] LABS: GLUCOSE,POINT OF CARE 100 MG/DL (70-110)
[2021-07-26] MEDS: ALBUTEROL SULFATE 2.5 MG/0.5 ML NEB SOLUTION NEB PRN ×3 (07:54→20:31)
[2021-07-26] MEDS: IPRATROPIUM BROMIDE 0.5 MG/2.5 ML NEB SOLUTION NEB PRN ×2 (07:54→16:48)
[2021-07-26 08:00] VITALS: BP_SYST 121; BP_SYST 149; BP_DIAS 32; BP_DIAS 68
[2021-07-26] MEDS: DOCUSATE SODIUM 100 MG CAPSULE PO SCH ×2 (08:42→20:37)
[2021-07-26] MEDS: GuaiFENesin SR 600 MG ER TABLET PO SCH ×2 (08:42→20:37)
[2021-07-26] MEDS: ASPIRIN 81 MG CHEWABLE TABLET PO SCH (08:42)
[2021-07-26] MEDS: HEPARIN SODIUM,PORCINE 5,000 UNITS/ML VIAL SQ SCH ×3 (08:42→23:58)
[2021-07-26] MEDS: BENZONATATE 100 MG CAPSULE PO SCH ×3 (08:43→20:37)
[2021-07-26] MEDS: ETHYL ALCOHOL 62% ANTISEPTIC NASAL INHALANT 0.6 ML AMPUL NASAL SCH ×2 (08:43→20:37)
[2021-07-26] MEDS: HYDROCODONE/ACETAMINOPHEN 5-325 MG TABLET PO PRN (08:56)
[2021-07-26] MEDS: ACETYLCYSTEINE 10% 100 MG/ML 4 ML NEB SOLUTION NEB SCH ×3 (09:11→20:31)
[2021-07-26 12:00] VITALS: BP 131/74
[2021-07-26 15:41] LABS: GLUCOSE,POINT OF CARE 89 MG/DL (70-110)
[2021-07-26 16:00] VITALS: BP 129/60
[2021-07-26 20:00] VITALS: BP 129/57
[2021-07-26 20:17] LABS: GLUCOSE,POINT OF CARE 78 MG/DL (70-110)
[2021-07-27] VITALS: BP 107/56
[2021-07-27] MEDS: PIPERACILLIN/TAZO 3.375 GM/D5W 50 ML IV SCH ×4 (03:21→21:21)
[2021-07-27 03:26] LABS: GLUCOSE,POINT OF CARE 117 MG/DL (70-110)
[2021-07-27 04:00] VITALS: BP 130/76
[2021-07-27] MEDS ORDERED: SODIUM CHLORIDE 0.9% 250 ML IV ONE (04:00)
[2021-07-27 05:15] LABS: BASOPHILS % (AUTO) 0.4 % (0.0-2.0); EOSINOPHILS % (AUTO) 3.3 % (1.0-6.0); HEMATOCRIT 29.4 % (41-53); HEMOGLOBIN 10.1 g/dL (13.5-17.5); LYMPHOCYTES # (AUTO) 0.8 K/uL (1.0-4.8); LYMPHOCYTES % (AUTO) 7.4 % (22.0-44.0); MEAN CORPUSCULAR HEMOGLOBIN 30.3 pg (26.0-34.0); MEAN CORPUSCULAR HGB CONC 34.3 G/dL (31.0-37.0); MEAN CORPUSCULAR VOLUME 88 fL (80-100); MONOCYTES # (AUTO) 0.9 K/uL (0.1-1.0); MONOCYTES % (AUTO) 8.5 % (2.0-9.0); NEUTROPHILS # (AUTO) 8.9 K/uL (1.8-7.7); NEUTROPHILS % (AUTO) 80.4 % (40.0-70.0); PLATELET COUNT (AUTO) 312 K/uL (150-450); RED BLOOD CELL COUNT(AUTO) 3.32 MIL/uL (4.50-5.90); RED CELL DISTRIBUTION WIDTH 13.3 % (11.5-14.5)
[2021-07-27 05:29] LABS: ANION GAP 4 mmol/L (8-16); CALCIUM, TOTAL 8.4 mg/dL (8.8-10.5); CARBON DIOXIDE 30 mmol/L (22-29); CHLORIDE 108 mmol/L (98-107); CREATININE 0.66 mg/dL (0.60-1.30); GLOMERULAR FILTR. RATE CALC > 60 mL/min (>60); GLUCOSE,RANDOM 99 mg/dL (70-110); POTASSIUM 3.8 mmol/L (3.5-5.1); SODIUM SERUM 142 mmol/L (136-145); UREA NITROGEN, BLOOD 10 mg/dL (7-18)
[2021-07-27] MEDS: PROPOFOL 1000 MG/ISO-OSM 100 ML IV PRN ×3 (06:40→21:36)
[2021-07-27 08:00] VITALS: BP 141/84
[2021-07-27] MEDS: ALBUTEROL SULFATE 2.5 MG/0.5 ML NEB SOLUTION NEB PRN ×2 (09:55→15:12)
[2021-07-27] MEDS: ACETYLCYSTEINE 10% 100 MG/ML 4 ML NEB SOLUTION NEB SCH ×3 (09:55→21:00)
[2021-07-27] MEDS: HEPARIN SODIUM,PORCINE 5,000 UNITS/ML VIAL SQ SCH ×2 (09:57→15:49)
[2021-07-27] MEDS: ETHYL ALCOHOL 62% ANTISEPTIC NASAL INHALANT 0.6 ML AMPUL NASAL SCH ×2 (09:57→21:20)
[2021-07-27 10:16] LABS: GLUCOSE,POINT OF CARE 99 MG/DL (70-110)
[2021-07-27 12:00] VITALS: BP 104/63
[2021-07-27] MEDS ORDERED: RAPID SEQUENCE KIT [RSI] 1 EACH KIT MISC ONE ×3 (14:08→23:43)
[2021-07-27] MEDS ORDERED: VECURONIUM BROMIDE 10 MG/VIAL ONE (14:12)
[2021-07-27] MEDS ORDERED: ROCURONIUM BROMIDE 10 MG/ML 5 ML VIAL IVP ONE (14:15)
[2021-07-27] MEDS ORDERED: VECURONIUM BROMIDE 10 MG/VIAL IVP ONE (15:00)
[2021-07-27] MEDS: ASPIRIN 81 MG CHEWABLE TABLET PO SCH (15:46)
[2021-07-27] MEDS: GuaiFENesin SR 600 MG ER TABLET PO SCH ×2 (15:47→21:19)
[2021-07-27] MEDS: DOCUSATE SODIUM 100 MG CAPSULE PO SCH ×2 (15:47→21:19)
[2021-07-27] MEDS: BENZONATATE 100 MG CAPSULE PO SCH ×2 (15:47→21:18)
[2021-07-27] MEDS: HYDROCODONE/ACETAMINOPHEN 5-325 MG TABLET PO PRN ×2 (15:49→21:19)
[2021-07-27 16:00] VITALS: BP 111/67
[2021-07-27 19:16] LABS: GLUCOSE,POINT OF CARE 86 MG/DL (70-110)
[2021-07-27 20:00] VITALS: BP 107/70
[2021-07-27 20:47] LABS: HEMATOCRIT 28.5 % (41-53); HEMOGLOBIN 9.8 g/dL (13.5-17.5)
[2021-07-27] MEDS: DEXTROSE 5%-LACTATED RINGERS 1,000 ML IV SCH (21:19)
[2021-07-27] MEDS ORDERED: NOREPINEPHRINE 4 MG/D5%-WATER 250 ML IV PRN (23:30)
[2021-07-27] MEDS ORDERED: SODIUM CHLORIDE 0.9% 500 ML IV ONE (23:30)
[2021-07-27] MEDS ORDERED: LORazepam 2 MG/ML VIAL IVP ONE (23:45)
[2021-07-27 23:46] LABS: HEMATOCRIT 29.6 % (41-53)
[2021-07-27] MEDS ORDERED: LORazepam 2 MG/ML VIAL ONE (23:47)
[2021-07-28] VITALS: BP 195/110
[2021-07-28] MEDS ORDERED: TRANEXAMIC ACID 1,000 MG in DEXTROSE 5%-WATER 50 ML IV ONE ×2
[2021-07-28] MEDS ORDERED: ROCURONIUM BROMIDE 10 MG/ML 5 ML VIAL IVP ONE (00:14)
[2021-07-28] MEDS ORDERED: ETOMIDATE 2 MG/ML 10 ML VIAL IVP ONE (00:14)
[2021-07-28 01:32] LABS: SITE, BLOOD GAS ARTERIAL LINE
[2021-07-28 01:33] LABS: ABG PH 7.338 (7.35-7.450); SOURCE, BLOOD GAS ARTERIAL; TEMPERATURE, FAHRENHEIT, BG 98.6 FAHREN (96.0-98.6)
[2021-07-28 01:34] LABS: ABG BASE EXCESS 3.4 mmol/L (-2.0-3.0); ABG HCO3 21.8 mmol/L (22.0-26.0); ABG PCO2 42 mmHg (35-45); ABG TOTAL HEMOGLOBIN 10.2 G/dL (12.0-18.0)
[2021-07-28 01:35] LABS: ABG CARBOXYHEMOGLOBIN 0.2 % (0.0-1.5); ABG METHEMOGLOBIN 0.5 % (0.0-1.5); ABG OXYGEN CONTENT 14.8 mL/dL (15.0-23.0); ABG OXYGEN SATURATION 99.1 % (95.0-98.0); ABG OXYHEMOGLOBIN 98.4 % (94.0-100.0)
[2021-07-28 01:36] LABS: O2 DEVICE,BLOOD GAS VENTILATOR (ROOM AIR)
[2021-07-28 01:37] LABS: PEEP,BG 5 cm H2O; SPONTANEOUS VT, BG 375 ml; VENT MODE, BG Press. Control Vent (ROOM AIR)
[2021-07-28] MEDS: PROPOFOL 1000 MG/ISO-OSM 100 ML IV PRN ×4 (02:48→17:03)
[2021-07-28 04:00] VITALS: BP 142/90
[2021-07-28 04:11] LABS: GLUCOSE,POINT OF CARE 103 MG/DL (70-110)
[2021-07-28] MEDS: HYDROCODONE/ACETAMINOPHEN 5-325 MG TABLET PO PRN (04:23)
[2021-07-28] MEDS: PIPERACILLIN/TAZO 3.375 GM/D5W 50 ML IV SCH ×4 (04:24→23:49)
[2021-07-28 06:46] LABS: GLUCOSE,POINT OF CARE 101 MG/DL (70-110)
[2021-07-28 07:02] LABS: BASOPHILS % (AUTO) 0.6 % (0.0-2.0); EOSINOPHILS % (AUTO) 2.8 % (1.0-6.0); HEMATOCRIT 26.8 % (41-53); HEMOGLOBIN 9.4 g/dL (13.5-17.5); LYMPHOCYTES # (AUTO) 0.8 K/uL (1.0-4.8); LYMPHOCYTES % (AUTO) 8.9 % (22.0-44.0); MEAN CORPUSCULAR VOLUME 88 fL (80-100); MONOCYTES # (AUTO) 1.1 K/uL (0.1-1.0); MONOCYTES % (AUTO) 11.7 % (2.0-9.0); NEUTROPHILS # (AUTO) 6.9 K/uL (1.8-7.7); PLATELET COUNT (AUTO) 343 K/uL (150-450); RED BLOOD CELL COUNT(AUTO) 3.03 MIL/uL (4.50-5.90); RED CELL DISTRIBUTION WIDTH 13.2 % (11.5-14.5)
[2021-07-28 07:15] LABS: ANION GAP 5 mmol/L (8-16); CALCIUM, TOTAL 7.7 mg/dL (8.8-10.5); CARBON DIOXIDE 29 mmol/L (22-29); CHLORIDE 108 mmol/L (98-107); CREATININE 0.58 mg/dL (0.60-1.30); GLOMERULAR FILTR. RATE CALC > 60 mL/min (>60); GLUCOSE,RANDOM 116 mg/dL (70-110); POTASSIUM 3.4 mmol/L (3.5-5.1); SODIUM SERUM 142 mmol/L (136-145); UREA NITROGEN, BLOOD 9 mg/dL (7-18)
[2021-07-28 07:20] LABS: ALANINE AMINOTRANSFERASE 47 U/L (12-78); ALBUMIN 1.7 g/dL (3.4-5.0); ALKALINE PHOSPHATASE 72 U/L (46-116); ASPARTATE AMINOTRANSFERASE 82 U/L (15-37); BILIRUBIN,TOTAL 0.3 mg/dL (0.1-1.0)
[2021-07-28 08:00] VITALS: BP 127/87
[2021-07-28] MEDS: HEPARIN SODIUM,PORCINE 5,000 UNITS/ML VIAL SQ SCH ×3 (08:00→16:00)
[2021-07-28] MEDS: DOCUSATE SODIUM 100 MG CAPSULE PO SCH ×2 (08:35→19:57)
[2021-07-28] MEDS: BENZONATATE 100 MG CAPSULE PO SCH ×3 (08:35→19:57)
[2021-07-28] MEDS: ASPIRIN 81 MG CHEWABLE TABLET PO SCH (08:36)
[2021-07-28] MEDS: ETHYL ALCOHOL 62% ANTISEPTIC NASAL INHALANT 0.6 ML AMPUL NASAL SCH ×2 (08:36→21:37)
[2021-07-28] MEDS: GuaiFENesin SR 600 MG ER TABLET PO SCH ×2 (08:36→19:57)
[2021-07-28] MEDS: ACETYLCYSTEINE 10% 100 MG/ML 4 ML NEB SOLUTION NEB SCH ×2 (09:00→16:00)
[2021-07-28 12:00] VITALS: BP 139/93
[2021-07-28 12:42] LABS: GLUCOSE,POINT OF CARE 100 MG/DL (70-110)
[2021-07-28] MEDS ORDERED: SODIUM CHLORIDE 0.9% 500 ML IV ONE ×2 (15:22)
[2021-07-28 16:00] VITALS: BP 165/102
[2021-07-28] MEDS: DEXTROSE 5%-LACTATED RINGERS 1,000 ML IV SCH (16:08)
[2021-07-28] MEDS ORDERED: ETOMIDATE 2 MG/ML 10 ML VIAL IV ONE (17:00)
[2021-07-28 20:00] VITALS: BP 136/77
[2021-07-28] MEDS: POTASSIUM CHL 10 MEQ/WATER 50 ML IV PRN ×3 (20:00→22:00)
[2021-07-29] VITALS: BP 130/82
[2021-07-29 00:35] LABS: GLUCOSE,POINT OF CARE 75 MG/DL (70-110)
[2021-07-29 04:00] VITALS: BP 116/55
[2021-07-29] MEDS: PIPERACILLIN/TAZO 3.375 GM/D5W 50 ML IV SCH ×2 (04:09→09:07)
[2021-07-29] MEDS ORDERED: MIDAZOLAM HCL 2 MG/2 ML VIAL IVP ONE (05:55)
[2021-07-29] MEDS ORDERED: FentaNYL CITRATE PF 100 MCG/2 ML VIAL IVP ONE (05:55)
[2021-07-29] MEDS ORDERED: LIDOCAINE/PF 2% 5 ML VIAL IM ONE (05:55)
[2021-07-29] MEDS ORDERED: PROPOFOL 1% 20 ML VIAL IVP ONE (05:55)
[2021-07-29] MEDS ORDERED: ROCURONIUM BROMIDE 10 MG/ML 5 ML VIAL IVP ONE (05:55)
[2021-07-29 08:00] VITALS: BP 101/53
[2021-07-29] MEDS: GuaiFENesin SR 600 MG ER TABLET PO SCH (09:08)
[2021-07-29] MEDS: DOCUSATE SODIUM 100 MG CAPSULE PO SCH (09:08)
[2021-07-29] MEDS: ETHYL ALCOHOL 62% ANTISEPTIC NASAL INHALANT 0.6 ML AMPUL NASAL SCH (09:08)
[2021-07-29] MEDS: BENZONATATE 100 MG CAPSULE PO SCH (09:08)
[2021-07-29] MEDS: ASPIRIN 81 MG CHEWABLE TABLET PO SCH (09:08)
[2021-07-29 09:16] LABS: GLUCOSE,POINT OF CARE 125 MG/DL (70-110)
[2021-07-29 12:06] VITALS: BP 126/63
[2021-07-29 12:32] LABS: GLUCOSE,POINT OF CARE 126 MG/DL (70-110)
[2021-07-29] MEDS ORDERED: HEPARIN SODIUM,PORCINE 5,000 UNITS/ML VIAL SQ SCH (16:00)
== END 2021-07-29 14:50 | DRG 4 ==
LOC: EMS 09:48 → ICU 18:25
PROVIDERS: ADMIT Internal Medicine; ATTEND Internal Medicine
PROC: 5A1955Z Respiratory Ventilation, Greater than 96 Consecutive Hours (ICD-10-PCS; principal; 2021-07-19)
PROC: 0BH17EZ Insertion of Endotracheal Airway into Trachea, Via Natural or Artificial Opening (ICD-10-PCS; 2021-07-19)
PROC: 5A09357 Assistance with Respiratory Ventilation, Less than 24 Consecutive Hours, Continuous Positive Airway Pressure (ICD-10-PCS; 2021-07-19)
PROC: 05HY33Z Insertion of Infusion Device into Upper Vein, Percutaneous Approach (ICD-10-PCS; 2021-07-22)
PROC: 0B113F4 Bypass Trachea to Cutaneous with Tracheostomy Device, Percutaneous Approach (ICD-10-PCS; 2021-07-27)
PROC: 0B9D8ZX Drainage of Right Middle Lung Lobe, Via Natural or Artificial Opening Endoscopic, Diagnostic (ICD-10-PCS; 2021-07-27)
PROC: 0HC4XZZ Extirpation of Matter from Neck Skin, External Approach (ICD-10-PCS; 2021-07-28)
DX: A41.9 Sepsis, unspecified organism (principal); J96.01 Acute respiratory failure with hypoxia; J69.0 Pneumonitis due to inhalation of food and vomit; E43 Unspecified severe protein-calorie malnutrition; G93.41 Metabolic encephalopathy; E87.0 Hyperosmolality and hypernatremia; F73 Profound intellectual disabilities; G93.1 Anoxic brain damage, not elsewhere classified; J98.11 Atelectasis; J95.01 Hemorrhage from tracheostomy stoma; Z99.11 Dependence on respirator [ventilator] status; Z68.1 Body mass index [BMI] 19.9 or less, adult; Z20.822 Contact with and (suspected) exposure to COVID-19; G80.9 Cerebral palsy, unspecified; E11.9 Type 2 diabetes mellitus without complications; R13.10 Dysphagia, unspecified; Z88.1 Allergy status to other antibiotic agents; Z88.8 Allergy status to other drugs, medicaments and biological substances; Y83.9 Surgical procedure, unspecified as the cause of abnormal reaction of the patient, or of later complication, without mention of misadventure at the time of the procedure
CPT/HCPCS: 36245; 36569; 36600; 70490; 71045; 76937; 80048; 80053; 81001; 81002; 82805; 82962; 83605; 83735; 83880; 84100; 84132; 84145; 85014; 85018; 85025; 85610; 85730; 86850; 86900; 86901; 87040; 87081; 93005; 93926; 94002; 94003; 94640; 94660; 94667; 94668; 94799; 99291; G0378; J0131; J0330; J1644; J2060; J2250; J2270; J2543; J2704; J3010; J3480; J3490; J7030; J7040; J7050; J7060; Q9967; 36415-L1; 36415-TC; J7611; J7613; U0003

== ENCOUNTER 2021-08-03 21:35 | Inpatient (IN) | payer MEDICARE, MEDICAID ==
[~2021-08-03] VITALS: Ht 157.5 cm; Wt 38.0 kg
[2021-08-03] MEDS ORDERED: CHOL-35 PEG (22:04)
[2021-08-03] MEDS ORDERED: GLYC1TAB27 PEG (22:04)
[2021-08-03] MEDS ORDERED: ASCO500 PEG (22:04)
[2021-08-03] MEDS ORDERED: BACL10TA PO (22:04)
[2021-08-03] MEDS ORDERED: SENN8.6T20 PEG (22:07)
[2021-08-03] MEDS ORDERED: SODIUM CHLORIDE 0.9% 1,000 ML IV ONE (22:30)
[2021-08-04] VITALS (16 sets, daily range): BP systolic 92–133; BP diastolic 35–88
[2021-08-04 00:33] LABS: COVID AG,FIA SOURCE NASOPHARYNGEAL
[2021-08-04 01:43] LABS: RED BLOOD CELL COUNT(AUTO) 1.49 MIL/uL (4.50-5.90)
[2021-08-04 01:52] LABS: ANION GAP 9 mmol/L (8-16); CARBON DIOXIDE 25 mmol/L (22-29); CHLORIDE 107 mmol/L (98-107); CREATININE 1.12 mg/dL (0.60-1.30); GLOMERULAR FILTR. RATE CALC > 60 mL/min (>60); GLUCOSE,RANDOM 89 mg/dL (70-110); POTASSIUM 4.6 mmol/L (3.5-5.1); SODIUM SERUM 141 mmol/L (136-145); UREA NITROGEN, BLOOD 18 mg/dL (7-18)
[2021-08-04 02:00] LABS: LACTIC ACID 0.9 mmol/L (0.4-2.0)
[2021-08-04 02:07] LABS: ALANINE AMINOTRANSFERASE 20 U/L (12-78); ALBUMIN 1.8 g/dL (3.4-5.0); ALKALINE PHOSPHATASE 41 U/L (46-116); ASPARTATE AMINOTRANSFERASE 22 U/L (15-37); BILIRUBIN,TOTAL 0.2 mg/dL (0.1-1.0); CREATINE KINASE, TOTAL ONLY 30 U/L (39-308); TOTAL PROTEIN, SERUM 5.7 g/dL (6.4-8.2)
[2021-08-04 02:20] LABS: INR 1.1 (0.9-1.1); MEAN CORPUSCULAR HEMOGLOBIN 30.2 pg (26.0-34.0); MEAN CORPUSCULAR HGB CONC 33.2 G/dL (31.0-37.0); MEAN CORPUSCULAR VOLUME 91 fL (80-100); PLATELET COUNT (AUTO) 521 K/uL (150-450); PROTHROMBIN TIME 12.1 SEC (9.4-11.6)
[2021-08-04 05:40] LABS: HEMATOCRIT 13.5 % (41-53); HEMOGLOBIN 4.5 g/dL (13.5-17.5)
[2021-08-04 06:11] LABS: B-TYPE NATRIURETIC PEPTIDE 16 pg/mL (0-100)
[2021-08-04 07:17] LABS: BAND NEUTROPHILS % (MANUAL) 3 % (0-5); LYMPHOCYTES % (MANUAL) 4 % (22-44); MONOCYTES % (MANUAL) 5 % (2-9); SEGMENTED NEUTROPHILS % 88 % (40-70)
[2021-08-04] MEDS ORDERED: NOREPINEPHRINE 4 MG/D5%-WATER 250 ML IV PRN (07:30)
[2021-08-04 12:40] LABS: PATHOLOGY REVIEW, DIFF YES
[2021-08-04] MEDS ORDERED: INSULIN LISPRO 100 UNITS/ML SQ PRN (13:15)
[2021-08-04] MEDS ORDERED: HYDROCODONE/ACETAMINOPHEN 5-325 MG TABLET PO PRN (13:15)
[2021-08-04] MEDS ORDERED: ZOLPIDEM TARTRATE 5 MG TABLET PO PRN (13:15)
[2021-08-04] MEDS ORDERED: MAGNESIUM HYDROXIDE SUSPENSION 30 ML UDCUP PO PRN (13:15)
[2021-08-04] MEDS ORDERED: MORPHINE SULFATE 2 MG/ML SYRINGE IVP PRN (13:15)
[2021-08-04] MEDS ORDERED: BISACODYL 10 MG RECTAL RECTAL SUPPOSITORY PR PRN (13:15)
[2021-08-04] MEDS ORDERED: ONDANSETRON HCL 4 MG/2 ML VIAL IVP PRN (13:15)
[2021-08-04] MEDS ORDERED: ACETAMINOPHEN 325 MG TABLET PO PRN (13:15)
[2021-08-04] MEDS ORDERED: ZOLPIDEM TARTRATE 5 MG TABLET PEG PRN (13:48)
[2021-08-04] MEDS ORDERED: MAGNESIUM HYDROXIDE SUSPENSION 30 ML UDCUP PEG PRN (13:49)
[2021-08-04] MEDS ORDERED: ACETAMINOPHEN 325 MG TABLET PEG PRN (13:49)
[2021-08-04 15:36] LABS: GLUCOMETER DEV NAME(LOC) ERT.5; GLUCOSE,POINT OF CARE 65 MG/DL (70-110)
[2021-08-04 15:47] LABS: HEMATOCRIT 23.7 % (41-53); HEMOGLOBIN 7.9 g/dL (13.5-17.5)
[2021-08-04] MEDS: ACETYLCYSTEINE 10% 100 MG/ML 4 ML NEB SOLUTION NEB SCH ×2 (16:00→21:00)
[2021-08-04] MEDS: DEXTROSE 50%-WATER 25 GM/50 ML SYRINGE IVP PRN (16:04)
[2021-08-04] MEDS: GLYCOPYRROLATE 1 MG TABLET PEG SCH ×2 (16:12→21:14)
[2021-08-04] MEDS: BACLOFEN 10 MG TABLET PEG SCH ×2 (16:12→21:14)
[2021-08-04] MEDS: DOCUSATE SODIUM 100 MG/10 ML LIQUID UDCUP PEG SCH (23:07)
[2021-08-05] VITALS (12 sets, daily range): BP systolic 100–190; BP diastolic 47–89
[2021-08-05] MEDS ORDERED: ALBUTEROL SULFATE 2.5 MG/0.5 ML NEB SOLUTION NEB ONE (04:45)
[2021-08-05] MEDS ORDERED: IPRATROPIUM BROMIDE 0.5 MG/2.5 ML NEB SOLUTION NEB ONE (04:45)
[2021-08-05] MEDS: ACETYLCYSTEINE 10% 100 MG/ML 4 ML NEB SOLUTION NEB SCH ×3 (04:53→21:00)
[2021-08-05] MEDS: GLYCOPYRROLATE 1 MG TABLET PEG SCH ×3 (04:54→22:08)
[2021-08-05] MEDS ORDERED: FentaNYL CITRATE PF 100 MCG/2 ML VIAL IVP ONE ×2 (07:34→17:00)
[2021-08-05] MEDS: BACLOFEN 10 MG TABLET PEG SCH ×3 (09:46→22:08)
[2021-08-05] MEDS: ASCORBIC ACID 500 MG TABLET PEG SCH (09:46)
[2021-08-05] MEDS: DOCUSATE SODIUM 100 MG/10 ML LIQUID UDCUP PEG SCH ×2 (09:46→22:10)
[2021-08-05] MEDS: CHOLECALCIFEROL (VIT D3) 1,000 UNITS [25 MCG] TABLET PEG SCH (09:46)
[2021-08-05 09:50] LABS: BASOPHILS % (AUTO) 0.9 % (0.0-2.0); EOSINOPHILS % (AUTO) 3.2 % (1.0-6.0); HEMATOCRIT 28.1 % (41-53); HEMOGLOBIN 9.4 g/dL (13.5-17.5); LYMPHOCYTES # (AUTO) 1.4 K/uL (1.0-4.8); LYMPHOCYTES % (AUTO) 19.3 % (22.0-44.0); MEAN CORPUSCULAR HEMOGLOBIN 28.9 pg (26.0-34.0); MEAN CORPUSCULAR HGB CONC 33.4 G/dL (31.0-37.0); MEAN CORPUSCULAR VOLUME 86 fL (80-100); MONOCYTES # (AUTO) 0.6 K/uL (0.1-1.0); MONOCYTES % (AUTO) 8.5 % (2.0-9.0); NEUTROPHILS # (AUTO) 4.9 K/uL (1.8-7.7); NEUTROPHILS % (AUTO) 68.1 % (40.0-70.0); PLATELET COUNT (AUTO) 418 K/uL (150-450); RED BLOOD CELL COUNT(AUTO) 3.25 MIL/uL (4.50-5.90); RED CELL DISTRIBUTION WIDTH 19.4 % (11.5-14.5)
[2021-08-05 09:58] LABS: ANION GAP 13 mmol/L (8-16); CALCIUM, TOTAL 8.3 mg/dL (8.8-10.5); CARBON DIOXIDE 21 mmol/L (22-29); CHLORIDE 108 mmol/L (98-107); CREATININE 0.64 mg/dL (0.60-1.30); GLOMERULAR FILTR. RATE CALC > 60 mL/min (>60); GLUCOSE,RANDOM 81 mg/dL (70-110); POTASSIUM 3.7 mmol/L (3.5-5.1); SODIUM SERUM 142 mmol/L (136-145); UREA NITROGEN, BLOOD 21 mg/dL (7-18)
[2021-08-05] MEDS ORDERED: PROPOFOL 1% 20 ML VIAL IVP ONE (12:00)
[2021-08-05] MEDS: HYDROCODONE/ACETAMINOPHEN 5-325 MG TABLET PEG PRN ×2 (15:53→22:09)
[2021-08-05] MEDS ORDERED: MIDAZOLAM HCL 2 MG/2 ML VIAL IM ONE (17:00)
[2021-08-05] MEDS ORDERED: FentaNYL CITRATE PF 100 MCG/2 ML VIAL ONE (17:27)
[2021-08-05] MEDS ORDERED: MIDAZOLAM HCL 2 MG/2 ML VIAL ONE (17:27)
[2021-08-05] MEDS ORDERED: SODIUM CHLORIDE 0.9% 1,000 ML ONE (18:35)
[2021-08-05] MEDS ORDERED: ALBUMIN HUMAN 25%-12.5GM/50ML 50 ML ONE (18:46)
[2021-08-05] MEDS ORDERED: SODIUM BICARBONATE [ADULT] 8.4% 50 MEQ/50 ML SYRINGE IVP ONE (18:47)
[2021-08-05] MEDS ORDERED: SODIUM CHLORIDE 0.9% 500 ML IV ONE (20:01)
[2021-08-05] MEDS: DEXTROSE 50%-WATER 25 GM/50 ML SYRINGE IVP PRN (21:12)
[2021-08-05 21:21] LABS: GLUCOSE,POINT OF CARE 55 MG/DL (70-110)
[2021-08-05] MEDS ORDERED: RINGERS SOLUTION,LACTATED 1,000 ML IV ONE (22:00)
[2021-08-06] VITALS (10 sets, daily range): BP systolic 94–135; BP diastolic 49–69
[2021-08-06 02:16] LABS: HEMATOCRIT 32.2 % (41-53)
[2021-08-06 06:28] LABS: BASOPHILS % (AUTO) 0.5 % (0.0-2.0); EOSINOPHILS % (AUTO) 2.2 % (1.0-6.0); HEMATOCRIT 32.5 % (41-53); HEMOGLOBIN 10.9 g/dL (13.5-17.5); LYMPHOCYTES # (AUTO) 1.1 K/uL (1.0-4.8); LYMPHOCYTES % (AUTO) 11.6 % (22.0-44.0); MEAN CORPUSCULAR HEMOGLOBIN 29.1 pg (26.0-34.0); MEAN CORPUSCULAR HGB CONC 33.7 G/dL (31.0-37.0); MEAN CORPUSCULAR VOLUME 86 fL (80-100); NEUTROPHILS # (AUTO) 7.3 K/uL (1.8-7.7); NEUTROPHILS % (AUTO) 75.7 % (40.0-70.0); PLATELET COUNT (AUTO) 447 K/uL (150-450); RED BLOOD CELL COUNT(AUTO) 3.75 MIL/uL (4.50-5.90); RED CELL DISTRIBUTION WIDTH 18.1 % (11.5-14.5)
[2021-08-06 06:29] LABS: ANION GAP 8 mmol/L (8-16); CALCIUM, TOTAL 8.9 mg/dL (8.8-10.5); CARBON DIOXIDE 27 mmol/L (22-29); CHLORIDE 107 mmol/L (98-107); CREATININE 0.66 mg/dL (0.60-1.30); GLOMERULAR FILTR. RATE CALC > 60 mL/min (>60); GLUCOSE,RANDOM 62 mg/dL (70-110); POTASSIUM 3.8 mmol/L (3.5-5.1); SODIUM SERUM 142 mmol/L (136-145); UREA NITROGEN, BLOOD 14 mg/dL (7-18)
[2021-08-06 07:06] LABS: GLUCOSE,POINT OF CARE 70 MG/DL (70-110)
[2021-08-06 07:06] LABS: GLUCOSE,POINT OF CARE 75 MG/DL (70-110)
[2021-08-06 07:06] LABS: GLUCOSE,POINT OF CARE 173 MG/DL (70-110)
[2021-08-06] MEDS: ACETYLCYSTEINE 10% 100 MG/ML 4 ML NEB SOLUTION NEB SCH ×3 (08:26→20:53)
[2021-08-06] MEDS ORDERED: DEXTROSE 5%-0.9% SODIUM CHL 1,000 ML IV SCH (09:30)
[2021-08-06] MEDS: BACLOFEN 10 MG TABLET PEG SCH ×3 (09:49→21:07)
[2021-08-06] MEDS: DOCUSATE SODIUM 100 MG/10 ML LIQUID UDCUP PEG SCH ×2 (09:49→21:07)
[2021-08-06] MEDS: GLYCOPYRROLATE 1 MG TABLET PEG SCH ×3 (09:49→21:07)
[2021-08-06] MEDS: ASCORBIC ACID 500 MG TABLET PEG SCH (09:49)
[2021-08-06] MEDS: CHOLECALCIFEROL (VIT D3) 1,000 UNITS [25 MCG] TABLET PEG SCH (09:49)
[2021-08-06 11:36] LABS: GLUCOSE,POINT OF CARE 84 MG/DL (70-110)
[2021-08-06 11:36] LABS: GLUCOSE,POINT OF CARE 63 MG/DL (70-110)
[2021-08-06 11:51] LABS: GLUCOSE,POINT OF CARE 83 MG/DL (70-110)
[2021-08-06] MEDS: DEXTROSE 5%-0.45% SODIUM CHL 1,000 ML IV SCH (14:21)
[2021-08-06] MEDS: IPRATROPIUM BROMIDE 0.5 MG/2.5 ML NEB SOLUTION NEB PRN ×2 (15:22→20:53)
[2021-08-06] MEDS: ALBUTEROL SULFATE 2.5 MG/0.5 ML NEB SOLUTION NEB PRN ×2 (15:23→20:54)
[2021-08-06 15:32] LABS: PHOSPHORUS 3.1 mg/dL (2.5-4.9)
[2021-08-06 16:11] LABS: MAGNESIUM 2.1 mg/dL (1.80-2.40); PHOSPHORUS 3.2 mg/dL (2.5-4.9)
[2021-08-06 17:32] LABS: GLUCOSE,POINT OF CARE 87 MG/DL (70-110)
[2021-08-06] MEDS ORDERED: ALBUMIN HUMAN 25%-25GM/100ML 100 ML IV ONE (17:45)
[2021-08-06] MEDS ORDERED: FUROSEMIDE 40 MG/4 ML VIAL IVP ONE (17:45)
[2021-08-07] VITALS (7 sets, daily range): BP systolic 108–169; BP diastolic 57–78
[2021-08-07 00:21] LABS: GLUCOSE,POINT OF CARE 113 MG/DL (70-110)
[2021-08-07 05:46] LABS: BASOPHILS % (AUTO) 0.4 % (0.0-2.0); EOSINOPHILS % (AUTO) 1.9 % (1.0-6.0); HEMATOCRIT 29.4 % (41-53); HEMOGLOBIN 10.1 g/dL (13.5-17.5); LYMPHOCYTES % (AUTO) 11.3 % (22.0-44.0); MEAN CORPUSCULAR HEMOGLOBIN 29.5 pg (26.0-34.0); MEAN CORPUSCULAR HGB CONC 34.4 G/dL (31.0-37.0); MEAN CORPUSCULAR VOLUME 86 fL (80-100); MONOCYTES # (AUTO) 0.8 K/uL (0.1-1.0); MONOCYTES % (AUTO) 8.3 % (2.0-9.0); NEUTROPHILS # (AUTO) 7.2 K/uL (1.8-7.7); NEUTROPHILS % (AUTO) 78.1 % (40.0-70.0); PLATELET COUNT (AUTO) 412 K/uL (150-450); RED BLOOD CELL COUNT(AUTO) 3.42 MIL/uL (4.50-5.90); RED CELL DISTRIBUTION WIDTH 18.3 % (11.5-14.5)
[2021-08-07 05:58] LABS: ANION GAP 9 mmol/L (8-16); CARBON DIOXIDE 25 mmol/L (22-29); CHLORIDE 105 mmol/L (98-107); CREATININE 0.64 mg/dL (0.60-1.30); GLOMERULAR FILTR. RATE CALC > 60 mL/min (>60); GLUCOSE,RANDOM 140 mg/dL (70-110); SODIUM SERUM 139 mmol/L (136-145); UREA NITROGEN, BLOOD 11 mg/dL (7-18)
[2021-08-07 06:44] LABS: POTASSIUM 2.9 mmol/L (3.5-5.1)
[2021-08-07] MEDS: DEXTROSE 5%-0.45% SODIUM CHL 1,000 ML IV SCH (08:13)
[2021-08-07] MEDS: POTASSIUM CHL 10 MEQ/WATER 50 ML IV SCH ×6 (08:14→15:04)
[2021-08-07] MEDS: ACETYLCYSTEINE 10% 100 MG/ML 4 ML NEB SOLUTION NEB SCH ×3 (08:39→22:09)
[2021-08-07] MEDS: ALBUTEROL SULFATE 2.5 MG/0.5 ML NEB SOLUTION NEB PRN ×3 (08:40→22:10)
[2021-08-07] MEDS: IPRATROPIUM BROMIDE 0.5 MG/2.5 ML NEB SOLUTION NEB PRN ×2 (08:40→22:10)
[2021-08-07] MEDS: HYDROCODONE/ACETAMINOPHEN 5-325 MG TABLET PEG PRN (09:43)
[2021-08-07] MEDS: THIAMINE 100 MG TABLET PO SCH (09:44)
[2021-08-07] MEDS: BACLOFEN 10 MG TABLET PEG SCH ×3 (09:44→20:35)
[2021-08-07] MEDS: GLYCOPYRROLATE 1 MG TABLET PEG SCH ×3 (09:44→20:35)
[2021-08-07] MEDS: ASCORBIC ACID 500 MG TABLET PEG SCH (09:44)
[2021-08-07] MEDS: CHOLECALCIFEROL (VIT D3) 1,000 UNITS [25 MCG] TABLET PEG SCH (09:45)
[2021-08-07] MEDS: DOCUSATE SODIUM 100 MG/10 ML LIQUID UDCUP PEG SCH ×2 (09:45→20:35)
[2021-08-07 17:27] LABS: GLUCOSE,POINT OF CARE 136 MG/DL (70-110)
[2021-08-07 20:51] LABS: GLUCOSE,POINT OF CARE 97 MG/DL (70-110)
[2021-08-08 03:45] VITALS: BP 135/63
[2021-08-08] MEDS: DEXTROSE 5%-0.45% SODIUM CHL 1,000 ML IV SCH ×2 (04:54→21:30)
[2021-08-08 07:11] LABS: GLUCOMETER DEV NAME(LOC) 5N.3; GLUCOSE,POINT OF CARE 136 MG/DL (70-110)
[2021-08-08 07:59] VITALS: BP 141/61
[2021-08-08 08:06] LABS: GLUCOMETER DEV NAME(LOC) 5N.1C; GLUCOSE,POINT OF CARE 129 MG/DL (70-110)
[2021-08-08] MEDS: ACETYLCYSTEINE 10% 100 MG/ML 4 ML NEB SOLUTION NEB SCH ×2 (09:00→16:06)
[2021-08-08] MEDS: IPRATROPIUM BROMIDE 0.5 MG/2.5 ML NEB SOLUTION NEB PRN ×2 (10:11→16:39)
[2021-08-08] MEDS: ALBUTEROL SULFATE 2.5 MG/0.5 ML NEB SOLUTION NEB PRN ×2 (10:11→16:39)
[2021-08-08] MEDS: GLYCOPYRROLATE 1 MG TABLET PEG SCH ×3 (11:04→20:29)
[2021-08-08] MEDS: CHOLECALCIFEROL (VIT D3) 1,000 UNITS [25 MCG] TABLET PEG SCH (11:04)
[2021-08-08] MEDS: BACLOFEN 10 MG TABLET PEG SCH ×3 (11:04→20:28)
[2021-08-08] MEDS: THIAMINE 100 MG TABLET PO SCH (11:04)
[2021-08-08] MEDS: ASCORBIC ACID 500 MG TABLET PEG SCH (11:05)
[2021-08-08] MEDS: DOCUSATE SODIUM 100 MG/10 ML LIQUID UDCUP PEG SCH ×2 (11:05→20:29)
[2021-08-08 11:55] LABS: ALANINE AMINOTRANSFERASE 13 U/L (12-78); ALBUMIN 2.3 g/dL (3.4-5.0); ALKALINE PHOSPHATASE 49 U/L (46-116); ANION GAP 9 mmol/L (8-16); ASPARTATE AMINOTRANSFERASE 20 U/L (15-37); BILIRUBIN,TOTAL 0.4 mg/dL (0.1-1.0); CALCIUM, TOTAL 9.2 mg/dL (8.8-10.5); CARBON DIOXIDE 23 mmol/L (22-29); CHLORIDE 106 mmol/L (98-107); CREATININE 0.52 mg/dL (0.60-1.30); GLOMERULAR FILTR. RATE CALC > 60 mL/min (>60); GLUCOSE,RANDOM 124 mg/dL (70-110); POTASSIUM 3.6 mmol/L (3.5-5.1); SODIUM SERUM 138 mmol/L (136-145); TOTAL PROTEIN, SERUM 6.4 g/dL (6.4-8.2); UREA NITROGEN, BLOOD 10 mg/dL (7-18)
[2021-08-08 12:41] VITALS: BP 144/62
[2021-08-08 13:18] LABS: BASOPHILS % (AUTO) 0.3 % (0.0-2.0); EOSINOPHILS % (AUTO) 3.6 % (1.0-6.0); HEMATOCRIT 27.6 % (41-53); HEMOGLOBIN 9.3 g/dL (13.5-17.5); LYMPHOCYTES # (AUTO) 0.9 K/uL (1.0-4.8); LYMPHOCYTES % (AUTO) 13.3 % (22.0-44.0); MEAN CORPUSCULAR HEMOGLOBIN 29.5 pg (26.0-34.0); MEAN CORPUSCULAR HGB CONC 33.8 G/dL (31.0-37.0); MEAN CORPUSCULAR VOLUME 87 fL (80-100); MONOCYTES # (AUTO) 0.7 K/uL (0.1-1.0); MONOCYTES % (AUTO) 10.4 % (2.0-9.0); NEUTROPHILS % (AUTO) 72.4 % (40.0-70.0); PLATELET COUNT (AUTO) 357 K/uL (150-450); RED BLOOD CELL COUNT(AUTO) 3.17 MIL/uL (4.50-5.90); RED CELL DISTRIBUTION WIDTH 18.1 % (11.5-14.5)
[2021-08-08 16:14] VITALS: BP 139/65
[2021-08-08 20:42] VITALS: BP 140/60
[2021-08-08 21:36] LABS: GLUCOMETER DEV NAME(LOC) 5N.1C; GLUCOSE,POINT OF CARE 113 MG/DL (70-110)
[2021-08-09] VITALS (7 sets, daily range): BP systolic 109–139; BP diastolic 59–75
[2021-08-09 07:16] LABS: GLUCOMETER DEV NAME(LOC) 5N.1C; GLUCOSE,POINT OF CARE 116 MG/DL (70-110)
[2021-08-09] MEDS: THIAMINE 100 MG TABLET PO SCH (08:38)
[2021-08-09] MEDS: DOCUSATE SODIUM 100 MG/10 ML LIQUID UDCUP PEG SCH ×2 (08:38→21:09)
[2021-08-09] MEDS: BACLOFEN 10 MG TABLET PEG SCH ×3 (08:38→21:11)
[2021-08-09] MEDS: ASCORBIC ACID 500 MG TABLET PEG SCH (08:38)
[2021-08-09] MEDS: CHOLECALCIFEROL (VIT D3) 1,000 UNITS [25 MCG] TABLET PEG SCH (08:38)
[2021-08-09] MEDS: GLYCOPYRROLATE 1 MG TABLET PEG SCH ×3 (08:38→21:09)
[2021-08-09 10:17] LABS: BASOPHILS % (AUTO) 0.6 % (0.0-2.0); EOSINOPHILS % (AUTO) 6.6 % (1.0-6.0); HEMATOCRIT 29.4 % (41-53); LYMPHOCYTES # (AUTO) 1.2 K/uL (1.0-4.8); LYMPHOCYTES % (AUTO) 19.1 % (22.0-44.0); MEAN CORPUSCULAR HEMOGLOBIN 29.7 pg (26.0-34.0); MEAN CORPUSCULAR VOLUME 87 fL (80-100); MONOCYTES # (AUTO) 0.8 K/uL (0.1-1.0); MONOCYTES % (AUTO) 11.7 % (2.0-9.0); PLATELET COUNT (AUTO) 385 K/uL (150-450); RED BLOOD CELL COUNT(AUTO) 3.36 MIL/uL (4.50-5.90); RED CELL DISTRIBUTION WIDTH 18.2 % (11.5-14.5)
[2021-08-09 10:30] LABS: ALANINE AMINOTRANSFERASE 16 U/L (12-78); ALBUMIN 2.3 g/dL (3.4-5.0); ALKALINE PHOSPHATASE 56 U/L (46-116); ANION GAP 5 mmol/L (8-16); ASPARTATE AMINOTRANSFERASE 17 U/L (15-37); BILIRUBIN,TOTAL 0.4 mg/dL (0.1-1.0); CALCIUM, TOTAL 8.8 mg/dL (8.8-10.5); CARBON DIOXIDE 25 mmol/L (22-29); CHLORIDE 104 mmol/L (98-107); CREATININE 0.47 mg/dL (0.60-1.30); GLUCOSE,RANDOM 105 mg/dL (70-110); POTASSIUM 3.9 mmol/L (3.5-5.1); SODIUM SERUM 134 mmol/L (136-145); TOTAL PROTEIN, SERUM 6.6 g/dL (6.4-8.2); UREA NITROGEN, BLOOD 10 mg/dL (7-18)
[2021-08-09 10:31] LABS: GLOMERULAR FILTR. RATE CALC > 60 mL/min (>60)
[2021-08-09 11:56] LABS: GLUCOMETER DEV NAME(LOC) 5N.3; GLUCOSE,POINT OF CARE 120 MG/DL (70-110)
[2021-08-09 11:56] LABS: GLUCOMETER DEV NAME(LOC) 5N.3; GLUCOSE,POINT OF CARE 125 MG/DL (70-110)
[2021-08-09 20:21] LABS: GLUCOMETER DEV NAME(LOC) 5N.3; GLUCOSE,POINT OF CARE 103 MG/DL (70-110)
[2021-08-09] MEDS: DEXTROSE 5%-0.45% SODIUM CHL 1,000 ML IV SCH (21:15)
[2021-08-09 23:26] LABS: GLUCOMETER DEV NAME(LOC) 5S.2B; GLUCOSE,POINT OF CARE 133 MG/DL (70-110)
[2021-08-09 23:27] LABS: GLUCOMETER DEV NAME(LOC) 5N.1C; GLUCOSE,POINT OF CARE 126 MG/DL (70-110)
[2021-08-10 05:00] VITALS: BP 106/66
[2021-08-10 07:17] VITALS: BP 111/58
[2021-08-10] MEDS: GLYCOPYRROLATE 1 MG TABLET PEG SCH ×2 (08:15→15:26)
[2021-08-10] MEDS: DOCUSATE SODIUM 100 MG/10 ML LIQUID UDCUP PEG SCH (08:15)
[2021-08-10] MEDS: ASCORBIC ACID 500 MG TABLET PEG SCH (08:15)
[2021-08-10] MEDS: THIAMINE 100 MG TABLET PO SCH (08:15)
[2021-08-10] MEDS: BACLOFEN 10 MG TABLET PEG SCH ×2 (08:16→15:27)
[2021-08-10] MEDS: CHOLECALCIFEROL (VIT D3) 1,000 UNITS [25 MCG] TABLET PEG SCH (08:16)
[2021-08-10 11:19] VITALS: BP 133/55
[2021-08-10 11:52] LABS: GLUCOMETER DEV NAME(LOC) 5N.1C; GLUCOSE,POINT OF CARE 103 MG/DL (70-110)
[2021-08-10 11:52] LABS: GLUCOMETER DEV NAME(LOC) 5N.1C; GLUCOSE,POINT OF CARE 98 MG/DL (70-110)
[2021-08-10 15:25] VITALS: BP 131/73
== END 2021-08-10 16:05 | DRG 207 ==
LOC: EMS 21:36 → UNDOADMIN 08-04 15:33 → ICUN 08-04 15:33 → ICU 08-05 13:39 → 5S 08-05 14:24
PROVIDERS: ADMIT Internal Medicine; ATTEND Internal Medicine
PROC: 0TCB8ZZ Extirpation of Matter from Bladder, Via Natural or Artificial Opening Endoscopic (ICD-10-PCS; 2021-08-05)
PROC: 0T9B80Z Drainage of Bladder with Drainage Device, Via Natural or Artificial Opening Endoscopic (ICD-10-PCS; 2021-08-05)
PROC: 30233N1 Transfusion of Nonautologous Red Blood Cells into Peripheral Vein, Percutaneous Approach (ICD-10-PCS; 2021-08-05)
PROC: 5A1955Z Respiratory Ventilation, Greater than 96 Consecutive Hours (ICD-10-PCS; principal; 2021-08-05 18:00)
DX: J96.21 Acute and chronic respiratory failure with hypoxia (principal); Z99.11 Dependence on respirator [ventilator] status; T83.83XA Hemorrhage due to genitourinary prosthetic devices, implants and grafts, initial encounter; S37.30XA Unspecified injury of urethra, initial encounter; I10 Essential (primary) hypertension; G80.9 Cerebral palsy, unspecified; N31.9 Neuromuscular dysfunction of bladder, unspecified; R31.0 Gross hematuria; Y92.230 Patient room in hospital as the place of occurrence of the external cause; Z66 Do not resuscitate; E11.9 Type 2 diabetes mellitus without complications; D64.9 Anemia, unspecified; Z93.1 Gastrostomy status; Z93.0 Tracheostomy status; Z78.1 Physical restraint status; Z88.8 Allergy status to other drugs, medicaments and biological substances
CPT/HCPCS: 71045; 80048; 80053; 82550; 82948; 82962; 83605; 83735; 83880; 84100; 84132; 84145; 84484; 85014; 85018; 85025; 85610; 85730; 86850; 86900; 86901; 86923; 87040; 87081; 93005; 94002; 94003; 94640; 99285; G0378; J0690; J1940; J2250; J2270; J2704; J3010; J3480; J3490; J7030; J7040; J7042; J7120; P9016; P9046; P9047; 36415-L1; 36415-TC; J7613; U0003; Z7610